=== PATIENT | male | born 1935 | race Caucasian/White ===

== ENCOUNTER → 2016-12-06 | Outpatient (CLI) | payer OTHER ==
[2016-04-26 15:02] VITALS: BP 122/60
[2016-12-06 11:13] LABS: CREATININE 1.38 mg/dL (0.70-1.30)
--- NOTE | 2016-12-07 09:27 | CT ---
CT CHEST WITH IV CONTRAST HISTORY: Dyspnea Comparison: Chest x-ray 08/02/2015 Technique: Multiple axial images of the chest were obtained from the thoracic inlet to the upper abd omen after the administration of IV contrast.Dose reduction techniques including Automated Exposure Control (AEC) and adjustment of mA and kV were utlized. Findings: The heart is normal in size. No pericardial effusion. Asymmetric elevation of the right hemidiaphrag m which is unchanged from 2015 chest x-ray. No suspicious mediastinal or axillary lymph nodes. Altho ugh not optimized to detect pulmonary embolism, no large central pulmonary emboli are seen. No focal consolidations, pleural effusions or pneumothorax. Airways are patent. No suspicious pulmo nary nodules or masses. Limited images of the upper abdomen are unremarkable. No aggressive osseous lesions. IMPRESSION: 1. No etiology for patient's dyspnea is identified. 2. Asymmetric elevation of the right hemidiaphragm. This is likely chronic in this patient. Reported By:
== END ==
LOC: RAD 10:37
PROVIDERS: ATTEND Internal Medicine
DX: R06.09 Other forms of dyspnea (principal)
CPT/HCPCS: 36415; 71260; 82565; 84520

== ENCOUNTER 2016-12-13 09:52 | Observation (INO) | payer OTHER ==
[2016-12-13] MEDS: PROTONIX INJ 40 MG VIAL IVP SCH (11:01)
[2016-12-13] MEDS: NS 1000 ML 1,000 ML IV SCH (11:02)
[2016-12-13 11:12] LABS: BASOPHILS % (AUTO) 0.4 % (0.2-1.0); EOSINOPHILS # (AUTO) 0.2 x10^3/uL (0.0-0.2); EOSINOPHILS % (AUTO) 3.5 % (0.9-2.9); HEMATOCRIT 38.3 % (42.0-54.0); HEMOGLOBIN 12.9 g/dL (13.5-18.0); LYMPHOCYTES % (AUTO) 19.4 % (21.0-51.0); MEAN CORPUSCULAR HEMOGLOBIN 27.8 pg (27.0-34.0); MEAN CORPUSCULAR HGB CONC 33.6 g/dL (33.0-35.0); MEAN CORPUSCULAR VOLUME 82.7 fL (80.0-100.0); MEAN PLATELET VOLUME 8.1 fL (7.4-11.0); MONOCYTES # (AUTO) 0.4 x10^3/uL (0.3-0.8); MONOCYTES % (AUTO) 6.9 % (0.0-13.0); NEUTROPHILS # (AUTO) 3.8 x10^3/uL (2.2-4.8); NEUTROPHILS % (AUTO) 69.8 % (42.0-75.0); PLATELET COUNT 210 X10^3/uL (150.0-450.0); RED BLOOD COUNT 4.63 X10^6/uL (4.7-6.0); WHITE BLOOD COUNT 5.4 X10^3/uL (3.6-10.0)
[2016-12-13 11:27] LABS: ALANINE AMINOTRANSFERASE 30 Units/L (12-78); ALBUMIN 3.7 g/dL (3.4-5.0); ALKALINE PHOSPHATASE 65 Units/L (46-116); ASPARTATE AMINO TRANSFERASE 19 Units/L (15-37); BLOOD UREA NITROGEN 24 mg/dL (7-18); CALCIUM 8.7 mg/dL (8.5-10.1); CARBON DIOXIDE 29.9 mmol/L (21-32); CHLORIDE 108 mmol/L (98-107); COR NA(FOR HYPERGLY) 142 mmol/L (136-145); CREATININE 1.35 mg/dL (0.70-1.30); GLUCOSE 111 mg/dL (65-99); MAGNESIUM 2.1 mg/dL (1.7-2.9); SODIUM 142 mmol/L (136-145); TOTAL PROTEIN 6.6 g/dL (6.4-8.2); eGFR BLACK RACES > 60 (>60); eGFR NON BLACK RACES 54 (>60)
[2016-12-13 11:40] LABS: CREATINE KINASE 86 Units/L (39-308); TROPONIN I < 0.02 ng/mL (0-1.5)
--- NOTE | 2016-12-13 11:55 | RAD ---
HISTORY: Chest pain Study: Chest one view Comparison: CT chest December 06, 2016 Findings: The heart is within normal limits in size. The umer are normal. Lungs are free of acute alveolar inf iltrates. No pleural effusions are identified. The right hemidiaphragm is chronically elevated. IMPRESSION: Lungs clear Chronically elevated right hemidiaphragm Reported By:
[2016-12-13 12:08] VITALS: BMI 28.3
[2016-12-13 12:32] LABS: CKMB % 1.2 % (<4); CREATINE KINASE MB < 1.0 ng/mL (0-4.0)
--- NOTE | 2016-12-13 13:04 | CT ---
HISTORY: Chronic dizziness, headache, facial numbness Study: CT brain without contrast Comparison: March 25, 2016 Technique: Multiple axial images of the brain were obtained from the skull base to the vertex witho ut administration of IV contrast. AEC was utilized. Findings: No acute intraparenchymal hemorrhage or mass can be identified. No extra-axial fluid collections ar e seen. No alteration in the attenuation of the brain parenchyma can be identified to suggest acute or subacute ischemic change. The ventricular system is symmetric and nondilated. There is chronic periventricular white matter disease observed and age-appropriate generalized atrophy. Extracrania l structures are grossly unremarkable. IMPRESSION: 1. No acute intracranial process can be identified. 2. Chronic periventricular white matter disease likely on the basis of small vessel ischemic change . 3. Age-appropriate atrophic changes are seen. Reported By:
--- NOTE | 2016-12-13 13:58 | DR.H&P ---
H&P - History & Physical for Day of: H&P Date: 12/13/16 - Chief Complaint Chief Complaint: DIZZINESS, NUMBNESS TO FACE, CP - Allergies Allergies/Adverse Reactions: Allergies Allergy/AdvReac Type Severity Reaction Status Date / Time Brompheniramine Allergy Verified 11/19/13 10:49 [From [employer]et[facility]] Phenylpropanolamine Allergy Verified 11/19/13 10:49 [From [employer]et[employer]] - History of Present Illness History of Present Illness: 81 [place] DIRECT ADMIT FROM DR MEADE OFFICE WITH CO NEW ONSET OF DIZZINESS AND FACIAL NUMBNESS. 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 PT STATES HE ATE THIS AM AND TOOK MEDICATIONS FELT FINE EARLIER TODAy. UPON ARRIVAL TO OFFICE WITH CO MILD CENTRAL CP, DENIES N/V, SOB, WEAKNESS. PT AMBULATED WITHOUT DIFFICLTY. PT BP WAS LOWER THAN BASELINE IN OFFICE 100/60,. PLAN TO ADMIT FOR CT HEAD, LABS SERIAL EKGS AND CARDIAC ENZYMES - Past Medical History Past Medical History: Arthritis, CVA, Dyslipidemia, Hypertension Additional Medical History: Diastolic Heart Failure, Hx Diverticulosis, BPH, Obstructive Sleep Apnea, Skin Cancer Basal Cell Carcinoma, Cataracts - Past Surgical History Surgical History: Ortho Surgery, Tonsillectomy, Other Additional Surgical History: Hernia Repair 2011, Nose surgery, Right arm surgery , Cataract Surgery - Family History Family Medical History: Cancer, [place], Hypertension - Social History Does patient currently use any type of tobacco product: No Have you used tobacco products in the last 12 months: No Type of Tobacco Use: None Does any household member use tobacco: No Alcohol Use: Rarely Drug Use: None - Review of Systems Constitutional: No Symptoms Reported Eyes: No Symptoms Reported ENT: No Symptoms Reported Respiratory: No Symptoms Reported Cardiovascular: Chest Pain Gastrointestinal: No Symptoms Reported Genitourinary: No Symptoms Reported Musculoskeletal: No Symptoms Reported Skin: No Symptoms Reported Neurological: Other (DIZZINESS) - Physical Exam Vital Signs: Temperature 97.8 F Pulse Rate [Right Brachial] 59 Respiratory Rate 12 Blood Pressure [Left Arm] 133/72 Blood Pressure [Right Arm] 102/57 Blood Pressure 122/60 O2 Sat by Pulse Oximetry 98 Oriented: Normal Eyes: Normal Ear: Normal Nose: Normal Throat: Normal Respiratory: RLL Diminished Cardiovascular: Normal. negative: Edema : Normal Auscultation: Bowel Sounds: Normal Palpation: Normal Tenderness: Normal Skin: Normal Musculoskeletal: Normal Mood Description: Calm Speech Pattern: Clear, Appropriate - Assessment/Plan (1) Dizziness Status: Acute Plan: ADMIT, CT HEAD STAT, CARDIAC MONITORING. ADMISSION CBC CMP UA. CXR, EKG. R/O AMI, CVA (2) Facial numbness Status: Acute Plan: DIFFUSE, BP AND LIPID CONTROL. CONTINUE PLAVIX, R/O CVA (3) Chest pain Qualifiers: Chest pain type: C Ischemic chest pain type: I Status: Acute Plan: ADMIT, SERIAL EKG'S CE. CXR ON ADMISSION, BP AND LIPID CONTROL. CONTINUE PLAVIX (4) Hypertension Qualifiers: Hypertension type: H Status: Acute (5) Essential hypertension Status: Chronic (6) History of CVA (cerebrovascular accident) Status: Chronic
[2016-12-13 15:39] LABS: BILIRUBIN,URINE NEGATIVE (NEGATIVE); BLOOD/HEMOGLOBIN,URINE NEGATIVE (NEGATIVE); GLUCOSE, URINE NEGATIVE (NEGATIVE); KETONES,URINE NEGATIVE (NEGATIVE); LEUKOCYTE ESTERASE ,URINE NEGATIVE (NEGATIVE); NITRITES,URINE NEGATIVE (NEGATIVE); PROTEIN,URINE NEGATIVE (NEGATIVE); UROBILINOGEN,URINE NORMAL (NORMAL)
[2016-12-13 15:49] LABS: APPEARANCE,URINE HAZY (CLEAR); BACTERIA,URINE NEGATIVE /HPF (NEGATIVE); COLOR,URINE YELLOW (YELLOW); RBC,URINE 0-2 /HPF (NEGATIVE); SQUAMOUS EPITHELIAL CELL,UR NEGATIVE /HPF (NEGATIVE)
[2016-12-13 16:46] LABS: CKMB % 1.2 % (<4); CREATINE KINASE 82 Units/L (39-308); CREATINE KINASE MB < 1.0 ng/mL (0-4.0); TROPONIN I < 0.02 ng/mL (0-1.5)
[2016-12-13] MEDS: COZAAR PO SCH (20:18)
[2016-12-13] MEDS ORDERED: [UNRECOGNIZED DRUG - OTHER] PO SCH (21:00)
[2016-12-13] MEDS ORDERED: ZyrTEC TAB 10 MG PO SCH (21:00)
[2016-12-13] MEDS ORDERED: ZETIA TAB 10 MG PO SCH (21:00)
[2016-12-13] MEDS ORDERED: ZOCOR TAB 40 MG PO SCH (21:00)
[2016-12-13] MEDS ORDERED: ZANAFLEX PO SCH (21:00)
[2016-12-13] MEDS ORDERED: ECOTRIN TAB 325 MG PO SCH (21:00)
[2016-12-13 23:29] LABS: CKMB % 1.4 % (<4); CREATINE KINASE 73 Units/L (39-308); CREATINE KINASE MB < 1.0 ng/mL (0-4.0); TROPONIN I < 0.02 ng/mL (0-1.5)
[2016-12-14 06:49] LABS: CHOL/HDL RATIO 4.5 (0.0-5.0)
[2016-12-14] MEDS ORDERED: HYDROCHLOROTHIAZIDE 25 MG TAB PO SCH (09:00)
[2016-12-14] MEDS ORDERED: PLAVIX PO SCH (09:00)
[2016-12-14] MEDS ORDERED: SYNTHROID 50 mcg TAB PO SCH (09:00)
[2016-12-14 09:05] LABS: CREATININE 1.28 mg/dL (0.70-1.30)
[2016-12-14] MEDS ORDERED: NS 100 ML IV 100 ML IV ONE (11:21)
[2016-12-14] MEDS: PROTONIX INJ 40 MG VIAL IVP SCH (12:39)
[2016-12-14] MEDS: COZAAR PO SCH (12:39)
[2016-12-14] MEDS: NS 1000 ML 1,000 ML IV SCH ×2 (12:40)
--- NOTE | 2016-12-14 14:06 | MRI ---
MRI OF THE BRAIN WITHOUT IV CONTRAST CLINICAL INDICATION: Headache. History of stroke. TECHNIQUE: Pre-contrast T1-w, T2, and diffusion-w sequences of the brain with ADC maps. COMPARISON: CT of the head 12/13/2016 FINDINGS: Diffuse patchy and confluent periventricular and subcortical T2/FLAIR signal with associated volume loss. There is no mass or mass-effect, or abnormal extra-axial fluid collection. Diffusion imaging shows no hyperacute, acute, or early subacute infarction. The ventricles are normal in size, shape a nd position. There are normal signal voids in the larger intracranial vessels. The paranasal sinuses and mastoid air cells are predominantly clear. The marrow signal pattern is within normal limits. IMPRESSION: 1. No acute intracranial abnormality. Reported By:
[2016-12-14 15:34] VITALS: BP 148/78
--- NOTE | 2016-12-14 15:36 | CT ---
CT ANGIOGRAM OF THE NECK WITHOUT AND WITH IV CONTRAST CLINICAL INDICATION: Hyperlipidemia with dizziness TECHNIQUE: Images were obtained through the neck per standard CTA protocol. Multiplanar reformatted, MIP, and volume rendered images were generated from the CT dataset.3D reconstructions were performe d. Dose reduction techniques including Automated Exposure Control (AEC) and adjustment of mA and kV were utlized. COMPARISON: None. FINDINGS: The imaged aortic arch is normal. The origins of the brachiocephalic, bilateral common carotid, linda ateral subclavian, and bilateral vertebral arteries demonstrate no significant stenosis.The bilatera l internal and external carotid arteries are patent. There is no grossly significant ICA stenosis.Th e cervical vertebral arteries are normal.There is no evidence of arterial dissection, significant st enosis, occlusion, extravasation of contrast material, arteriovenous fistula, or pseudoaneurysm.The visualized soft tissues of the neck appear normal. Moderate multilevel degenerative disc disease. IMPRESSION: 1. No hemodynamically significant stenosis of the carotid arteries Reported By:
== END 2016-12-14 14:45 | disposition home or self-care (01) ==
LOC: ICU 09:52
PROVIDERS: ADMIT Internal Medicine; ATTEND Internal Medicine
DX: R07.89 Other chest pain (principal); R42 Dizziness and giddiness; R20.0 Anesthesia of skin; E78.2 Mixed hyperlipidemia; I10 Essential (primary) hypertension; M13.89 Other specified arthritis, multiple sites; D64.89 Other specified anemias; R94.4 Abnormal results of kidney function studies; R94.31 Abnormal electrocardiogram [ECG] [EKG]; Z86.73 Personal history of transient ischemic attack (TIA), and cerebral infarction without residual deficits; Z79.01 Long term (current) use of anticoagulants
CPT/HCPCS: 36415; 70450; 70498; 70551; 71010; 80053; 80061; 81001; 82550; 82553; 82565; 83735; 84484; 84520; 85025; 85610; 85730; 93005; 93010; A4222; C9113; G8978; G8979; G0378

== ENCOUNTER → 2017-08-31 | Outpatient (CLI) | payer OTHER ==
--- NOTE | 2017-08-31 16:40 | RAD ---
History: Acute bronchitis, cough, shortness of breath Study: Chest PA/lateral Findings: PA and left lateral projections of the chest are compared to the previous study of 12/14/19 17. Heart and mediastinal structures are satisfactory in appearance. Chronic elevation the right megha diaphragm is again noted. Lungs and pleural spaces are clear. Osseous structures appear intact. Impression: No acute intra thoracic disease is identified. Reported By:
== END ==
LOC: RAD 16:20
PROVIDERS: ATTEND Internal Medicine
DX: J20.9 Acute bronchitis, unspecified (principal)
CPT/HCPCS: 71046

== ENCOUNTER → 2017-10-12 | Outpatient (CLI) | payer OTHER ==
--- NOTE | 2017-10-13 08:22 | RAD ---
HISTORY: Left hip pain Study: Left hip AP, frog-leg, AP pelvis Comparison: None Findings: The pelvic bones and SI joints are intact. The patient is incidentally noted to be status post right hip arthroplasty in good position. There is severe degenerative joint space narrowing in the left hip with subchondral sclerosis present. No joint erosion is identified. No fracture, lytic, or blastic l esion is identified. IMPRESSION: Relatively severe degenerative joint space narrowing left hip Reported By:
--- NOTE | 2017-10-13 08:53 | RAD ---
HISTORY: Back and left hip pain Study: Five views lumbar spine Comparison: MRI 03/04/2016 Findings: Normal alignment of the lumbar spine is maintained. Vertebral body heights are preserved. There is multilevel spondylosis and facet arthropathy of the lumbar spine with degenerative disc space narrowi ng most prominent at L4-5 and L5-S1.No evidence for acute fracture or subluxation. There is partially visualized right hip prosthesis. Vascular calcifications are noted. IMPRESSION: 1. Discogenic degenerative changes and facet arthropathy most prominent at L4-5 and L5-S1. Reported By:
== END | disposition home or self-care (01) | DRG 552 ==
LOC: RAD 15:19
PROVIDERS: ATTEND Specialist
DX: M54.89 Other dorsalgia (principal); M47.896 Other spondylosis, lumbar region; M47.897 Other spondylosis, lumbosacral region
CPT/HCPCS: 72110; 73501

== ENCOUNTER 2021-10-06 10:15 | Observation (INO) ==
[2021-10-06 10:22] VITALS: BMI 28.6
--- NOTE | 2021-10-06 10:37 | DR.WEAKNES ---
HPI Time Seen Time Seen by Provider: 10/06/21 10:28 Primary Care Physician Primary Care Physician: DANIELLE UGARTE HPI Comment HPI Comment: PATIENT IS 86YR OLD MALE IN ER WITH DIFFICULTY IN SPEECH SINCE 09:00AM TODAY. HE WAS FINDING IT DIFFICULT TO COME UP WITH RIGHT WORD. IT IS IMPROVING. HISTORY HTN AND HAVE HAD PREVIOUS CVA. DENIES HEADACHE, BLURRED VISION OR WEANESS. Complaints Chief Complaint Doctors Comments: PATIENT COULD NOT COME OUT WITH THE RIGHT WORDS TODAY SINCE 09:00AM. IMPROVING. Chief Complaint:: PT'S STATES SHE THINKS PT MAY HAVE HAD A MINI STOKE THIS AM @ 0900. PT STATES HE COULDN'T COME UP WITH THE RIGHT WORDS THIS AM. UPON ARRIVAL PT IS A&O X4, PT ABLE TO SPEAK IN COMPLETE SENTENCES @ THIS TIME. NO NEURO DEFICITS NOTED @ THIS TIME. Reviewed Nurses Notes Reviewed: Yes Source History Provided: Patient Mode of Arrival Mode of Arrival: Ambulatory Timing Onset of Chief Complaint: 10/06/21 Since onset, symptoms are:: Improved Symptom Onset: Known Onset of Symptoms Start Date: 10/06/21 Onset of Symptoms Start Time: 09:00 Duration Duration: Since Onset Duration: Hours Context Onset: Spontaneous Symptoms: Difficulty talking History of: CVA Stroke Symptoms: None (SPEECH DIFFICULTY.) Location Weakness Location: Normal Associated Signs and Symptoms Associated Signs and Symptoms: None Other History Other History: HTN, PREVIOUS CVA. PMH PMH Past Medical History: Yes Past Medical History: Arthritis, CVA, Dyslipidemia and Hypertension Past Surgical History: Yes Surgical History: Ortho Surgery, Tonsillectomy and Other Family History History of Family Medical Conditions: Yes Family Medical History: Cancer, [place] and Hypertension Social History Do you use any recreational Drugs:: No Travel Risk Coronavirus risk:travel/contact w/high risk person: No Has patient experienced Coronavirus symptoms: No Infectious screening Have you traveled outside the country in the last 6 months?: No Isolation: Standard ROS Review of Systems Constitutional: No Symptoms Reported and See HPI; negative Fever, Weakness and Fatigue Eyes: No Symptoms Reported and See HPI; negative Blurred Vision and Diplopia ENTM: No Symptoms Reported and See HPI; negative Nose Discharge and Nose Congestion Respiratoy: No Symptoms Reported and See HPI; negative Moist Cough, Short of Breath and Wheezing Cardiovascular: No Symptoms Reported and See HPI; negative Chest Pain Gastrointestinal/Abdominal: No Symptoms Reported and See HPI; negative Abdominal Pain, Diarrhea, Nausea and Vomiting Genitourinary: No Symptoms Reported and See HPI; negative Dysuria, Frequency and Hematuria Neurological: No Symptoms Reported, See HPI and Speech Problem (PROBLEM WITH WORDS COMIMG OUT.); negative Headache, Weakness and Dizziness Musculoskeletal: No Symptoms Reported and See HPI; negative Back Pain and Muscle Pain Integumentary: No Symptoms Reported and See HPI; negative Change in Color, Rash and Juandice Hematologic/Lymphatic: No Symptoms Reported and See HPI; negative Easy Bruising Endocrine: No Symptoms Reported and See HPI; negative Increased Thirst and Increased Urine Psychiatric: No Symptoms Reported and See HPI All Other Systems: Reviewed and Negative PE Vital Signs Vitals: Temperature 98.8 F Pulse Rate 61 Respiratory Rate 16 Blood Pressure [Left Arm] 133/72 Blood Pressure [Right Arm] 148/78 Blood Pressure 148/68 O2 Sat by Pulse Oximetry 95 General Limitations: No Limitations General Appearance: Alert and In No Apparent Distress Head Head Exam: Normal Inspection, Atraumatic and Normocephalic Head Exam Physical: Other (NONE NOTED IN ER.) Eyes Eye exam: Normal Appearance Eyelids: Normal Inspection: Bilateral Pupils: Regular, Round: Bilateral and Reactive: Bilateral Sclera/Conjunctival: Normal Inspection: Bilateral ENT ENT Exam: Normal Exam, Normal Oropharynx, Normal External Ear Exam and TM's Normal Bilaterally Mouth Exam: Normal Inspection; negative Lip Swelling and Tongue Swelling Throat Exam: Normal Inspection; negative Tonsillar Erythema, Tonsillomegaly and Tonsillar Exudate Neck Neck Exam: Normal Inspection and Trachea Midline; negative Tenderness Chest Chest Inspection: Normal Inspection and Symmetric Chest Wall Rise; negative Tenderness Respiratory Respiratory Exam: Normal Lung Sounds Bilat; negative Accessory Muscle Use, Chest Wall Tenderness and Respiratory Distress Respiratory Exam: Bilateral: Rhonchi and Lower: Rhonchi Cardiovascular Cardiovascular Exam: Regular Rate, Normal Rhythm and Normal Heart Sounds; nega tive Systolic Murmur and Diastolic Murmur Abdominal Exam Abdominal Exam: Normal Inspection, Normal Bowel Sounds and Soft; negative Tenderness Extremities Extremities Exam: Normal Inspection and Normal Capillary Refill Back Back Exam: Normal Inspection; negative (R) CVA Tenderness and (L) CVA Tenderness Neurologic Neurological Exam: Alert, Oriented X3, CN II-XII Intact and Other (SPEECH FLUID AND CLEAR. AND PATIENT SAID IS NOT NORMAL BUT MUCH IMPROVED.); negative Motor Sensory Deficit Patient Oriented To: Person, Place and Time Speech: Fluid Speech Cranial Nerve Exam: EOM Function (II, III, IV, ): Normal, Facial Sensation (V): Normal, Facial Palsy (VII): Normal, Gag reflex (XI): Normal and Tongue Deviation: Normal Motor Strength - LUE: 5/5 Motor Strength - RUE: 5/5 Motor Strength - LLE: 5/5 Motor Strength - RLE: 5/5 Upper Motor Neuron Exam: Babinski Sign: Normal Psychiatric Psychiatric Exam: Normal Affect and Normal Mood Skin Skin Exam: Warm, Dry, Intact and Normal Color MDM Additional Information Obtained Additional Information Obtained From: Old Records Differential Diagnosis Differential Diagnosis: CVA, Hypoglycemia, Mass Lesion and TIA Differential Diagnosis Comment: UTI, PNEUMONIA, [place]. COURSE Treatment Treatment: SEE ORDERS DONE WHILE PATIENT IN ER. PATIENT TRANSPORTED TO [facility] IN [place] FOR BRAIN CT. NO ACUTE FINDINGS AT THIS TIME. REPORT DISCUSSED WITH PATIENT AND HIS . LABS AND EKG DISCUSSED WELL. PATIENT WILL BE ADMITTED TO HOSPITAL FOR FURTHER MANAGEMENT. Consultation Consultation Comments: DISCUSSED PATIENT WITH DR. LEIVA WHILE PATIENT WAS IN ER. HE WILL ADMIT PATIENT Education/Counseling Education/Counseling: Patient Educated On: Diagnosis ROR Labs Reviewed Laboratory Results Reviewed?: Yes Result Diagrams: 10/07/21 04:20 10/07/21 04:20 Laboratory: WBC 6.8 X10^3/uL (3.6-10.0) 10/06/21 10:43 RBC 4.53 X10^6/uL (4.7-6.0) L 10/06/21 10:43 Hgb 12.7 g/dL (13.5-18.0) L 10/06/21 10:43 Hct 37.0 % (42.0-54.0) L 10/06/21 10:43 MCV 81.7 fL (80.0-100.0) 10/06/21 10:43 MCH 28.1 pg (27.0-34.0) 10/06/21 10:43 MCHC 34.4 g/dL (33.0-35.0) 10/06/21 10:43 RDW 14.4 % (11.6-16.5) 10/06/21 10:43 Plt Count 230 X10^3/uL (150.0-450.0) 10/06/21 10:43 MPV 7.7 fL (7.4-11.0) 10/06/21 10:43 Neut % (Auto) 70.5 % (42.0-75.0) 10/06/21 10:43 Lymph % (Auto) 19.2 % (21.0-51.0) L 10/06/21 10:43 [place] % (Auto) 7.0 % (0.0-13.0) 10/06/21 10:43 Eos % (Auto) 2.9 % (0.9-2.9) 10/06/21 10:43 Baso % (Auto) 0.4 % (0.2-1.0) 10/06/21 10:43 Neut # (Auto) 4.8 x10^3/uL (2.2-4.8) 10/06/21 10:43 Lymph # (Auto) 1.3 X10^3/uL (1.3-2.9) 10/06/21 10:43 [place] # (Auto) 0.5 x10^3/uL (0.3-0.8) 10/06/21 10:43 Eos # (Auto) 0.2 x10^3/uL (0.0-0.2) 10/06/21 10:43 Baso # (Auto) 0.0 X10^3/uL (0.0-0.1) 10/06/21 10:43 Absolute Nucleated RBC 0.1 /100WBC 10/06/21 10:43 PT 12.9 SECONDS (11.8-14.3) 10/06/21 10:43 INR Target Range - 10/06/21 10:43 INR 1.03 (0.8-1.3) 10/06/21 10:43 APTT 29.3 SECONDS (22.9-36.5) 10/06/21 10:43 PTT Comment - 10/06/21 10:43 Sodium 140 mmol/L (136-145) 10/06/21 10:43 Corrected Sodium TNP 10/06/21 10:43 Potassium 4.0 mmol/L (3.5-5.1) 10/06/21 10:43 Chloride 105 mmol/L (98-107) 10/06/21 10:43 Carbon Dioxide 30.1 mmol/L (21-32) 10/06/21 10:43 BUN 27 mg/dL (7-18) H 10/06/21 10:43 Creatinine 1.25 mg/dL (0.70-1.30) 10/06/21 10:43 Est GFR (MDRD) Af Amer > 60 (>60) 10/06/21 10:43 Est GFR (MDRD) Non-Af 58 (>60) L 10/06/21 10:43 Glucose 101 mg/dL (65-99) H 10/06/21 10:43 POC Glucose (mg/dL) 100 mg/dL (65-99) H 10/06/21 10:55 Calcium 8.1 mg/dL (8.5-10.1) L 10/06/21 10:43 Corrected Calcium TNP 10/06/21 10:43 Total Bilirubin 0.40 mg/dL (0.2-1.0) 10/06/21 10:43 AST 31 Units/L (15-37) 10/06/21 10:43 ALT 55 Units/L (12-78) 10/06/21 10:43 Alkaline Phosphatase 73 Units/L (46-116) 10/06/21 10:43 Total Protein 6.3 g/dL (6.4-8.2) L 10/06/21 10:43 Albumin 3.5 g/dL (3.4-5.0) 10/06/21 10:43 Globulin 2.8 g/dL (2.5-4.5) 10/06/21 10:43 Albumin/Globulin Ratio 1.3 Ratio (1.1-2.1) 10/06/21 10:43 Specimen Type Clean catch urine 10/06/21 13:15 Urine Color Yellow (YELLOW) 10/06/21 13:15 Urine Appearance Clear (CLEAR) 10/06/21 13:15 Urine pH 7.0 (5.0 - 8.0) 10/06/21 13:15 Ur Specific [place] 1.010 (1.000-1.030) 10/06/21 13:15 Urine Protein Negative (NEGATIVE) 10/06/21 13:15 Urine Glucose (UA) Negative (NEGATIVE) 10/06/21 13:15 Urine Ketones Negative (NEGATIVE) 10/06/21 13:15 Urine Occult Blood Negative (NEGATIVE) 10/06/21 13:15 Urine Nitrite Negative (NEGATIVE) 10/06/21 13:15 Urine Bilirubin Negative (NEGATIVE) 10/06/21 13:15 Urine Urobilinogen Normal (NORMAL) 10/06/21 13:15 Ur Leukocyte Esterase Negative (NEGATIVE) 10/06/21 13:15 SARS-CoV-2 (PCR) Negative (NEGATIVE) 10/06/21 13:15 Influenza Type A (PCR) Negative (NEGATIVE) 10/06/21 13:15 Influenza Type B (PCR) Negative (NEGATIVE) 10/06/21 13:15 RSV (PCR) Negative (NEGATIVE) 10/06/21 13:15 XRAY XRAY Interpreted by: Radiologist (REPORT NOTED.) and Self EKG Rate: 64 [place]: Normal Rhythm: NSR Block: None Hypertrophy: None ST: Nonsp Opioid Opioid Risk Tool Age (Brent box if 16-45): No History of Preadolescent Sexual Abuse: No Total: 0 Total Score Risk Category: Low Risk Copyright: [employer] EDWARDS predicting aberrant behaviors Diagnosis Discharge Problem: Brain TIA Hypertension Qualifiers: Hypertension type: primary hypertension Qualified Code(s): I10 - Essential (primary) hypertension Instructions Instructions: Confusion Transient Ischemic Attack, [id number] Bleeding Precautions When on Anticoagulant Therapy, Adult Form - Blood Pressure Record Sheet Dizziness, [id number] Managing Your Hypertension Forms: Excuse From Work or School Precautions for COVID19 [facility] Social Distancing
[2021-10-06 10:52] LABS: BASOPHILS % (AUTO) 0.4 % (0.2-1.0); EOSINOPHILS # (AUTO) 0.2 x10^3/uL (0.0-0.2); EOSINOPHILS % (AUTO) 2.9 % (0.9-2.9); HEMOGLOBIN 12.7 g/dL (13.5-18.0); LYMPHOCYTES # (AUTO) 1.3 X10^3/uL (1.3-2.9); LYMPHOCYTES % (AUTO) 19.2 % (21.0-51.0); MEAN CORPUSCULAR HEMOGLOBIN 28.1 pg (27.0-34.0); MEAN CORPUSCULAR HGB CONC 34.4 g/dL (33.0-35.0); MEAN CORPUSCULAR VOLUME 81.7 fL (80.0-100.0); MEAN PLATELET VOLUME 7.7 fL (7.4-11.0); MONOCYTES # (AUTO) 0.5 x10^3/uL (0.3-0.8); NEUTROPHILS # (AUTO) 4.8 x10^3/uL (2.2-4.8); NEUTROPHILS % (AUTO) 70.5 % (42.0-75.0); RED BLOOD COUNT 4.53 X10^6/uL (4.7-6.0); RED CELL DISTRIBUTION WIDTH 14.4 % (11.6-16.5); WHITE BLOOD COUNT 6.8 X10^3/uL (3.6-10.0)
[2021-10-06 11:01] LABS: ALANINE AMINOTRANSFERASE 55 Units/L (12-78); ALBUMIN 3.5 g/dL (3.4-5.0); ALKALINE PHOSPHATASE 73 Units/L (46-116); ASPARTATE AMINO TRANSFERASE 31 Units/L (15-37); BLOOD UREA NITROGEN 27 mg/dL (7-18); CALCIUM 8.1 mg/dL (8.5-10.1); CARBON DIOXIDE 30.1 mmol/L (21-32); CHLORIDE 105 mmol/L (98-107); CREATININE 1.25 mg/dL (0.70-1.30); SODIUM 140 mmol/L (136-145); TOTAL PROTEIN 6.3 g/dL (6.4-8.2); eGFR NON BLACK RACES 58 (>60)
[2021-10-06] MEDS ORDERED: ROCEPHIN 1 GRAM IV PREMIX 1 G/50 ML IV.SOLN. IV ONE (12:52)
[2021-10-06 13:26] LABS: BILIRUBIN,URINE NEGATIVE (NEGATIVE); BLOOD/HEMOGLOBIN,URINE NEGATIVE (NEGATIVE); GLUCOSE, URINE NEGATIVE (NEGATIVE); KETONES,URINE NEGATIVE (NEGATIVE); LEUKOCYTE ESTERASE ,URINE NEGATIVE (NEGATIVE); NITRITES,URINE NEGATIVE (NEGATIVE); PROTEIN,URINE NEGATIVE (NEGATIVE); UROBILINOGEN,URINE NORMAL (NORMAL)
[2021-10-06 13:36] LABS: APPEARANCE,URINE CLEAR (CLEAR); COLOR,URINE YELLOW (YELLOW)
[2021-10-06] MEDS ORDERED: PLAVIX ONE (14:18)
[2021-10-06] MEDS ORDERED: ASPIRIN ONE (14:19)
[2021-10-06] MEDS: PLAVIX PO SCH (14:28)
[2021-10-06] MEDS ORDERED: ASPIRIN PO SCH (15:00)
[2021-10-06] MEDS ORDERED: PATIENT'S HOME MEDICATION (Cinnamon Bark [Cinnamon] 500 mg Capsule) PO SCH (16:38)
[2021-10-06] MEDS ORDERED: PATIENT'S HOME MEDICATION (Aspirin 81 mg Tablet) PO SCH (16:38)
[2021-10-06] MEDS ORDERED: ZyrTEC TAB 10 MG PO SCH (16:38)
[2021-10-06] MEDS: NS 1,000 ML IV 1,000 ML IV SCH (17:34)
[2021-10-06] MEDS ORDERED: MICRO K EXTEN CAP 10 MEQ PO SCH (21:00)
[2021-10-06] MEDS ORDERED: ZETIA TAB 10 MG PO SCH (21:00)
[2021-10-06] MEDS ORDERED: MELATONIN PO PRN (21:00)
[2021-10-06] MEDS ORDERED: SAW PALMETTO 450 MG PO SCH (21:00)
[2021-10-06] MEDS ORDERED: TURMERIC 400 MG PO SCH (21:00)
[2021-10-06] MEDS ORDERED: NIACIN 500 MG PO SCH (21:00)
[2021-10-06] MEDS ORDERED: APPLE CIDER VINEGAR PO SCH (21:00)
[2021-10-06] MEDS ORDERED: ARICEPT TAB 5 MG PO SCH (21:00)
[2021-10-06] MEDS ORDERED: ZOCOR TAB 40 MG PO SCH (21:00)
[2021-10-06] MEDS ORDERED: SINEquan PO SCH (21:00)
[2021-10-06] MEDS ORDERED: GLUCOSAMINE SULFATE 500 MG PO SCH (21:00)
[2021-10-06] MEDS: NAPROSYN PO SCH (21:13)
[2021-10-06] MEDS: COZAAR PO SCH (21:13)
[2021-10-06 23:47] LABS: CKMB % 1.9 % (<4); CREATINE KINASE 52 Units/L (39-308); CREATINE KINASE MB < 1.0 ng/mL (0-4.0)
[2021-10-07] MEDS: NS 1,000 ML IV 1,000 ML IV SCH (05:10)
[2021-10-07 05:32] LABS: BASOPHILS % (AUTO) 0.4 % (0.2-1.0); EOSINOPHILS # (AUTO) 0.1 x10^3/uL (0.0-0.2); EOSINOPHILS % (AUTO) 2.3 % (0.9-2.9); HEMATOCRIT 35.1 % (42.0-54.0); HEMOGLOBIN 12.2 g/dL (13.5-18.0); LYMPHOCYTES # (AUTO) 1.7 X10^3/uL (1.3-2.9); LYMPHOCYTES % (AUTO) 25.7 % (21.0-51.0); MEAN CORPUSCULAR HEMOGLOBIN 28.1 pg (27.0-34.0); MEAN CORPUSCULAR HGB CONC 34.9 g/dL (33.0-35.0); MEAN CORPUSCULAR VOLUME 80.5 fL (80.0-100.0); MEAN PLATELET VOLUME 8.1 fL (7.4-11.0); MONOCYTES # (AUTO) 0.5 x10^3/uL (0.3-0.8); NEUTROPHILS # (AUTO) 4.1 x10^3/uL (2.2-4.8); NEUTROPHILS % (AUTO) 63.6 % (42.0-75.0); RED BLOOD COUNT 4.36 X10^6/uL (4.7-6.0); RED CELL DISTRIBUTION WIDTH 14.4 % (11.6-16.5); WHITE BLOOD COUNT 6.5 X10^3/uL (3.6-10.0)
[2021-10-07 05:57] LABS: ALANINE AMINOTRANSFERASE 47 Units/L (12-78); ALBUMIN 3.3 g/dL (3.4-5.0); ALKALINE PHOSPHATASE 67 Units/L (46-116); ASPARTATE AMINO TRANSFERASE 25 Units/L (15-37); BLOOD UREA NITROGEN 22 mg/dL (7-18); CALCIUM 7.9 mg/dL (8.5-10.1); CARBON DIOXIDE 29.2 mmol/L (21-32); CHLORIDE 107 mmol/L (98-107); CKMB % 2.1 % (<4); COR CA(FOR HYPOALB) 8.5 mg/dL (8.5-10.1); CREATINE KINASE 47 Units/L (39-308); CREATINE KINASE MB < 1.0 ng/mL (0-4.0); CREATININE 1.02 mg/dL (0.70-1.30); SODIUM 144 mmol/L (136-145); TOTAL PROTEIN 5.8 g/dL (6.4-8.2); eGFR NON BLACK RACES > 60 (>60)
[2021-10-07] MEDS ORDERED: MICRO K EXTEN CAP 10 MEQ PO PRN (06:46)
[2021-10-07] MEDS ORDERED: KLOR-CON PO PRN (06:46)
[2021-10-07] MEDS ORDERED: K-DUR TAB 20 MEQ PO PRN (06:46)
[2021-10-07] MEDS ORDERED: MAGNESIUM SULFATE 1 GRAM/100 mL PREMIX 1 G/100 ML BAG IV PRN (06:46)
[2021-10-07] MEDS ORDERED: POTASSIUM CHL 60 MEQ/NS 0.45% 500 ML IV PRN (06:46)
[2021-10-07] MEDS ORDERED: POTASSIUM CHLORIDE LIQ 20 MEQ UDC PO PRN (06:46)
[2021-10-07] MEDS ORDERED: K-RIDER 10 MEQ/NS 100 ML 10 MEQ/100 ML BAG IV PRN (06:46)
[2021-10-07] MEDS ORDERED: POTASSIUM CHL 40 MEQ/NS 0.45% 500 ML IV PRN (06:46)
[2021-10-07] MEDS ORDERED: SYNTHROID 75 mcg TAB PO SCH (09:00)
[2021-10-07] MEDS ORDERED: ASPIRIN EC 81 MG PO SCH ×2 (09:00)
[2021-10-07] MEDS ORDERED: TAB-A-VITE PO SCH (09:00)
[2021-10-07] MEDS ORDERED: HYDROCHLOROTHIAZIDE 25 MG TAB PO SCH (09:00)
[2021-10-07] MEDS ORDERED: PLAVIX PO SCH ×2 (09:00)
--- NOTE | 2021-10-07 09:29 | MRI ---
HISTORYSPEECH DISTURBANCE, TROUBLE COMMUNICATING WORDS SINCE YESTERDAYSTUDYBRAIN W/O CONCOMPARISONCT head 01/05/2021.TECHNIQUEMultiplanar multi-sequence MRI of the brain was obtained utilizing standard departmental protocol. Sagittal and axial T1 weighted images were obtained. Axial T2 and flair weighted images were performed as well. Axial diffusion weighted and ADC trace mapping was performed.FINDINGSMild motion artifact on the FLAIR sequence and moderate motion artifact on the coronal T2 sequence limits evaluation.Diffusion imaging: [Normal, no acute infarct.]Susceptibility weighted imaging: [No abnormal susceptibility artifact.]Brain volume: [Appropriate for age.]Ventricles and basal cisterns: FLAIR bright signal in the basilar cisterns and 4th ventricle is nonspecific but often due to technical artifact. No abnormal signal in these locations on other pulse sequences. No hydrocephalus.Extra-axial spaces: [No extra-axial collection.]Cerebral parynchema: [No mass, hematoma, or mass effect.] Mild amount of T2 and Flair hyperintensities in the supratentorial subcortical and deep white matter. Chronic right basal ganglia lacunar infarct. Multiple perivascular spaces are present in the basal ganglia.Pituitary and other sagittal midline structures: [Normal.]Visualized orbits: [Normal.]Paranasal sinuses and mastoid air cells: [Clear.]Bones: [Intact.]Other: [None.]IMPRESSION[No abnormal restricted diffusion to suggest acute infarct. Mild chronic small vessel disease. Chronic right basal ganglia lacunar infarct.]Electronically signed by: Shamir Abernathy (Oct 07, 2021 09:27:57)
[2021-10-07] MEDS: PLAVIX PO SCH (10:00)
[2021-10-07] MEDS ORDERED: LOVENOX INJ 40 MG SYR SC SCH ×2 (10:00→11:00)
[2021-10-07] MEDS: COZAAR PO SCH (10:00)
[2021-10-07] MEDS: NAPROSYN PO SCH (10:18)
--- NOTE | 2021-10-07 12:48 | DR.H&P ---
H&P - History & Physical for Day of: H&P Date: 10/06/21 - Chief Complaint Chief Complaint: Confusion - History of Present Illness History of Present Illness: Patient is a 86 year old white male who is being admitted due to confusion. Patient has a history of CVA many years ago; was on ASA and plavix. Plavix has since been discontinued over the years. Patient had an episode of confusion this am at his daughters house. Patient and spouse deny any residual effects. PMH CVA, COPD, CAD, HTN, HLD. - Past Medical History Past Medical History: Hypertension, Dyslipidemia, CVA, Arthritis Additional Medical History: Diastolic Heart Failure, Hx Diverticulosis, BPH, Obstructive Sleep Apnea, Skin Cancer Basal Cell Carcinoma, Cataracts - Past Surgical History Surgical History: Joint Replacement, Ortho Surgery, Tonsillectomy Additional Surgical History: Hernia Repair 2011, Nose surgery, Right arm surgery, Cataract Surgery - Family History Family Medical History: Cancer, [place], Hypertension - Social History Does patient currently use any type of tobacco product: No Have you used tobacco products in the last 12 months: No Type of Tobacco Use: Cigarettes Does any household member use tobacco: No Alcohol Use: None Drug Use: None - Medications Home Medications: brompheniramine Allergy (Verified 10/06/21 10:35) phenylpropanolamine Allergy (Verified 10/06/21 10:35) CONTINUE taking the following medications alfuzosin 10 mg PO HS 10/06/21 [History] apple cider vinegar 500 mg PO BID 10/06/21 [History] aspirin 81 mg PO ONCE 10/06/21 [History] cetirizine 10 mg PO ONCE 10/06/21 [History] cinnamon bark [Cinnamon] 2,000 mg PO ONCE 10/06/21 [History] donepezil 5 mg PO HS 10/06/21 [History] doxepin 25 mg PO HS 10/06/21 [History] ezetimibe 10 mg PO HS 10/06/21 [History] glucosamine sulfate [Glucosamine] 500 mg PO BID 10/06/21 [History] hydrochlorothiazide 25 mg PO DAILY 10/06/21 [History] levothyroxine 75 mcg PO DAILY 10/06/21 [History] losartan 25 mg PO HS 10/06/21 [History] melatonin 10 mg PO HS PRN 10/06/21 [History] multivitamin,[id number]-edel-[id number] [Complete Multivitamin] 1 tab PO DAILY 10/06/21 [History] naproxen 250 mg PO BID 10/06/21 [History] niacin 500 mg PO BID 10/06/21 [History] potassium chloride 10 meq PO HS 10/06/21 [History] saw palmetto 450 mg PO BID 10/06/21 [History] simvastatin 40 mg PO HS 10/06/21 [History] turmeric 400 mg PO BID 10/06/21 [History] - Review of Systems Constitutional: See HPI Eyes: See HPI ENT: See HPI Respiratory: See HPI Cardiovascular: See HPI Gastrointestinal: See HPI Genitourinary: See HPI Musculoskeletal: See HPI Skin: See HPI Neurological: See HPI - Physical Exam Vital Signs: Temperature 98.3 F Pulse Rate [Left] 62 Pulse Rate 65 Respiratory Rate 18 Blood Pressure [Left Arm] 157/70 Blood Pressure [Right Arm] 137/64 Blood Pressure 161/72 O2 Sat by Pulse Oximetry 95 Oriented: Normal, Time, Person, Place Eyes: Normal Ear: Normal Nose: Normal Throat: Normal Respiratory: Clear Throughout Cardiovascular: Normal : Normal Auscultation: Bowel Sounds: Normal Palpation: Normal Tenderness: Normal Skin: Normal Musculoskeletal: Normal Psychiatric: Normal Mood Description: Calm Affect: Normal Speech Pattern: Clear, Appropriate - Assessment/Plan (1) Confusion Status: Acute Plan: MRI brain. Admit. LAbs and imaging as ordered. ASA and Plavix (2) Essential hypertension Status: Chronic (3) History of CVA (cerebrovascular accident) Status: Chronic (4) Hyperlipidemia Qualifiers: Hyperlipidemia type: Mixed hyperlipidemia Qualified Code(s): E78.2 - Mixed hyperlipidemia Status: Chronic - Allergies Allergies/Adverse Reactions: Allergies Allergy/AdvReac Type Severity Reaction Status Date / Time brompheniramine Allergy Verified 10/06/21 10:35 phenylpropanolamine Allergy Verified 10/06/21 10:35
[2021-10-07 14:22] VITALS: BP 169/80
--- NOTE | 2021-11-03 14:05 | PCM.DCPLAN ---
Discharge Plan - Discharge Plan Hospital Course: Admit date 10/06/21 Discharge date 10/07/21 DOS 10/07/21 Admit diagnosis(1) Confusion (2) Essential hypertension (3) History of CVA (cerebrovascular accident) (4) Hyperlipidemia Discharge diagnosis Same Hospital Course Patient is a 86 year old white male who is being admitted due to confusion. Patient has a history of CVA many years ago; was on ASA and plavix. Plavix has since been discontinued over the years. Patient had an episode of confusion this am at his daughters house. Patient and spouse deny any residual effects. Patient was alert and oriented after arriving to hospital. Spouse reports patient never gets confused therefore this transient confusion was different and abnormal therefore she brought him to hospital. MRI was negative for acute findings as well as all other radiology exams and labs. Patient was discharged home to follow up with PCP. Patient was discharged home on ASA and plavix (due to history of CVA). Greater than 35 minutes spent on discharge.to discomfort; Disposition: 01 HOME, SELF-CARE Condition: Stable Health Concerns: Post Hospitalization: new medications and changes needed to prevent readmission or further decline. Pt educated and given instructions on all concerns. Care Plan Goals: Problem: Alteration in Mental Status Goal: Patient will stay oriented to their cognitive ability Instructions: Follow provided instructions. Follow up with primary physician as directed. Contact primary care physician or report to the closest Emergency Room if condition worsens. Plan of Treatment: Continue with present treatment and follow up plan. Pt is to keep follow up appointment as instructed and take medications as ordered. Prescriptions: New aspirin [Aspirin Low Dose] 81 mg Tablet,Delayed Release (Dr/Ec) 81 mg PO DAILY Qty: 30 RF: 0 Transmission Status: Received by [facility] clopidogrel [Plavix] 75 mg Tablet 75 mg PO DAILY Qty: 30 RF: 0 Transmission Status: Received by [facility] Discontinued aspirin 81 mg Tablet 81 mg PO ONCE No Action alfuzosin 10 mg tablet extended release 24 hr 10 mg PO HS apple cider vinegar 500 mg Tablet 500 mg PO BID cetirizine 10 mg Tablet 10 mg PO ONCE cinnamon bark [Cinnamon] 500 mg Capsule 2,000 mg PO ONCE Complete Multivitamin Tablet 1 tab PO DAILY donepezil 5 mg tablet 5 mg PO HS doxepin 50 mg capsule 25 mg PO HS ezetimibe 10 mg tablet 10 mg PO HS glucosamine sulfate [Glucosamine] 500 mg Tablet 500 mg PO BID hydrochlorothiazide 25 mg tablet 25 mg PO DAILY levothyroxine 75 mcg tablet 75 mcg PO DAILY losartan 100 mg tablet 25 mg PO HS melatonin 10 mg Tablet 10 mg PO HS PRN naproxen 250 mg Tablet 250 mg PO BID niacin 500 mg Capsule 500 mg PO BID potassium chloride 10 mEq capsule, extended release 10 meq PO HS saw palmetto 450 mg Capsule 450 mg PO BID simvastatin 40 mg tablet 40 mg PO HS turmeric 400 mg Capsule 400 mg PO BID - Orders to Discharge Patient Discharge Orders: Discharge (Routine); Ordered 10/07/21 Ordered By: Valery Corona - Follow ups/Referrals Follow ups/Referrals: DANIELLE UGARTE [Primary Care Provider] - 10/14/21 2:00 pm
== END 2021-10-07 14:45 | disposition home or self-care (01) ==
LOC: MED/SURG 10:15 → ER 10:15 → MED/SURG 16:50
PROVIDERS: ADMIT Internal Medicine; ATTEND Internal Medicine
DX: R41.82 Altered mental status, unspecified; R94.31 Abnormal electrocardiogram [ECG] [EKG]; I10 Essential (primary) hypertension; G45.8 Other transient cerebral ischemic attacks and related syndromes; Z20.822 Contact with and (suspected) exposure to COVID-19; E78.2 Mixed hyperlipidemia; Z86.73 Personal history of transient ischemic attack (TIA), and cerebral infarction without residual deficits

== ENCOUNTER 2021-12-04 02:34 | Observation (INO) ==
[2021-12-04 02:46] VITALS: BMI 27.1
--- NOTE | 2021-12-04 03:13 | DR.SOBA ---
HPI Time Seen Time Seen by Provider: 12/04/21 02:42 HPI Comment HPI Comment: Returns to ER with persistent sob and cough x several weeks; initially in 12/03 with cp which resolved; no fever, chills, abd pain, n/v/d; currently on abx (?merropenam) via picc line for osteomyelitis per Dr Garcia and ID in [place]; daughter has copy of chest ct done in [place] a week or two ago which shows elevated diaphragm and "cannot r/o infectious process" PMH PMH Past Medical History: Arthritis, CVA, Dyslipidemia and Hypertension Past Surgical History: Yes Surgical History: Joint Replacement, Ortho Surgery and Tonsillectomy Family History Family Medical History: Cancer, [place] and Hypertension Social History Do you use any recreational Drugs:: No ROS Review of Systems Constitutional: No Symptoms Reported Eyes: No Symptoms Reported ENTM: No Symptoms Reported Cardiovascular: No Symptoms Reported Gastrointestinal/Abdominal: No Symptoms Reported Genitourinary: No Symptoms Reported Neurological: No Symptoms Reported Musculoskeletal: No Symptoms Reported Integumentary: No Symptoms Reported Hematologic/Lymphatic: No Symptoms Reported Endocrine: No Symptoms Reported Psychiatric: No Symptoms Reported PE Vital Signs Vitals: Temperature 98.2 F Pulse Rate 62 Respiratory Rate 18 Blood Pressure [Left Arm] 169/80 Blood Pressure 157/70 O2 Sat by Pulse Oximetry 98 General Limitations: No Limitations General Appearance: Alert and In No Apparent Distress Head Head Exam: Normal Inspection Eyes Eye exam: Normal Appearance ENT ENT Exam: Normal Exam Neck Neck Exam: Normal Inspection Chest Chest Inspection: Normal Inspection Respiratory Respiratory Exam: Normal Lung Sounds Bilat Respiratory Exam: Bilateral: Clear to Auscultation Cardiovascular Cardiovascular Exam: Regular Rate and Normal Rhythm Abdominal Exam Abdominal Exam: Normal Inspection, Normal Bowel Sounds and Soft Extremities Extremities Exam: Normal Inspection Back Back Exam: Normal Inspection Neurologic Neurological Exam: Alert and Oriented X3 Psychiatric Psychiatric Exam: Normal Affect and Normal Mood Skin Skin Exam: Warm, Dry, Intact and Normal Color COURSE Treatment Treatment: elevated diaphragm is chronic; on merropenam for osteomyelitis via picc line; will add zpak for atypical coverage Reevaluation 1st: Unchanged (resting quietly) ROR Labs Reviewed Laboratory Results Reviewed?: Yes Result Diagrams: 12/08/21 04:06 12/08/21 04:06 Laboratory: Sodium 136 mmol/L (136-145) 12/04/21 03:00 Corrected Sodium 136 mmol/L (136-145) 12/04/21 03:00 Potassium 2.9 mmol/L (3.5-5.1) L* 12/04/21 03:00 Chloride 102 mmol/L (98-107) 12/04/21 03:00 Carbon Dioxide 27.1 mmol/L (21-32) 12/04/21 03:00 BUN 16 mg/dL (7-18) 12/04/21 03:00 Creatinine 1.50 mg/dL (0.70-1.30) H 12/04/21 03:00 Est GFR (MDRD) Af Amer 57 (>60) L 12/04/21 03:00 Est GFR (MDRD) Non-Af 47 (>60) L 12/04/21 03:00 Glucose 112 mg/dL (65-99) H 12/04/21 03:00 Calcium 7.9 mg/dL (8.5-10.1) L 12/04/21 03:00 Corrected Calcium 9.1 mg/dL (8.5-10.1) 12/04/21 03:00 Total Bilirubin 0.40 mg/dL (0.2-1.0) 12/04/21 03:00 AST 19 Units/L (15-37) 12/04/21 03:00 ALT 24 Units/L (12-78) 12/04/21 03:00 Alkaline Phosphatase 108 Units/L (46-116) 12/04/21 03:00 Creatine Kinase 20 Units/L (39-308) L 12/04/21 03:00 CK-MB (CK-2) < 1.0 ng/mL (0-4.0) 12/04/21 03:00 CK/CKMB % Calc 5.0 % (<4) 12/04/21 03:00 Troponin I High Sens 18.1 ng/L (4.0-60.0) 12/04/21 03:00 Total Protein 6.1 g/dL (6.4-8.2) L 12/04/21 03:00 Albumin 2.5 g/dL (3.4-5.0) L 12/04/21 03:00 Globulin 3.6 g/dL (2.5-4.5) 12/04/21 03:00 Albumin/Globulin Ratio 0.7 Ratio (1.1-2.1) L 12/04/21 03:00 SARS CoV-2 RNA Rapid JESSICA Negative (NEGATIVE) 12/04/21 02:50 XRAY XRAY Interpreted by: Radiologist X-ray Results: CTA: 1. No pulmonary embolus. 2.Possible right lower lobe pneumonia. 3. Elevated right hemidiaphragm. Opioid Opioid Risk Tool Age (Brent box if 16-45): No History of Preadolescent Sexual Abuse: No Total: 0 Total Score Risk Category: Low Risk Copyright: [facility] predicting aberrant behaviors Diagnosis Discharge Problem: Elevated hemidiaphragm, Acute hypokalemia, Acute dyspnea RLL pneumonia Qualifiers: Pneumonia type: due to unspecified organism Qualified Code(s): J18.9 - Pneumonia, unspecified organism Hypertension Qualifiers: Hypertension type: primary hypertension Qualified Code(s): I10 - Essential (primary) hypertension Instructions Instructions: Fall Prevention in the Home, Adult, Lkes-nh-Epja Shortness of Breath, Adult, Gtjz-jm-Cbgi Hypokalemia Panic Attack, Hqfq-oo-Stmd Stroke Prevention, Bhyf-ks-Wbiq Hypertension, Adult, Kjuh-wk-Lxvj Supporting Someone With Anxiety Managing Anxiety, Adult Managing Your Hypertension Community-Acquired Pneumonia, Adult, Xfys-dg-Utyh Forms: Precautions for COVID19 [facility] Social Distancing
[2021-12-04 03:33] LABS: ALANINE AMINOTRANSFERASE 24 Units/L (12-78); ALBUMIN 2.5 g/dL (3.4-5.0); ALKALINE PHOSPHATASE 108 Units/L (46-116); ASPARTATE AMINO TRANSFERASE 19 Units/L (15-37); BLOOD UREA NITROGEN 16 mg/dL (7-18); CALCIUM 7.9 mg/dL (8.5-10.1); CARBON DIOXIDE 27.1 mmol/L (21-32); CHLORIDE 102 mmol/L (98-107); COR CA(FOR HYPOALB) 9.1 mg/dL (8.5-10.1); CREATINE KINASE 20 Units/L (39-308); CREATINE KINASE MB < 1.0 ng/mL (0-4.0); TOTAL PROTEIN 6.1 g/dL (6.4-8.2); eGFR NON BLACK RACES 47 (>60)
[2021-12-04 03:44] LABS: COR NA(FOR HYPERGLY) 136 mmol/L (136-145); SODIUM 136 mmol/L (136-145)
[2021-12-04] MEDS ORDERED: K-RIDER 10 MEQ/NS 100 ML 10 MEQ/100 ML BAG IV ONE ×2 (03:48→03:55)
[2021-12-04] MEDS ORDERED: MICRO K EXTEN CAP 10 MEQ PO ONE (03:55)
[2021-12-04] MEDS: MICRO K EXTEN CAP 10 MEQ PO SCH ×2 (04:00→09:27)
--- NOTE | 2021-12-04 04:40 | CT ---
PROCEDURE: CTA Chest .HISTORY: Dyspnea.TECHNIQUE: Axial images were performed through the chest with the administration of IV contrast with multiplanar reformations . 3D and MIPS reconstructions were performed and reviewed. Dose reduction techniques including Automated Exposure Control (AEC) and adjustment of mA and kV were utilized .COMPARISON: None .TECHNICAL QUALITY: Satisfactory .FINDINGS:Mild atherosclerosis aorta with no aneurysm. Aorta is unopacified with contrast.No evidence of pulmonary embolus.Mediastinum and hilar regions show no masses or lymphadenopathy.Normal size heart with no pericardial fluid.Elevated right hemidiaphragm. Atelectasis/consolidation right lower lobe with air bronchograms could be related to pneumonia. No other consolidation. No masses or pleural fluid.Visualized upper abdomen shows no significant abnormality.No acute bony abnormality.IMPRESSION:1. No pulmonary embolus.2. Possible right lower lobe pneumonia.3. Elevated right hemidiaphragm.Electronically signed by: Koffi Rivas (Dec 04, 2021 04:39:58)
[2021-12-04] MEDS ORDERED: ROCEPHIN 1 GRAM IV PREMIX 1 G/50 ML IV.SOLN. IV ONE (04:59)
[2021-12-04] MEDS ORDERED: NS 250 ML IV 250 ML IV ONE ×2 (05:00→06:06)
[2021-12-04] MEDS ORDERED: ZITHROMAX INJ 500 MG VIAL 500 MG in NS 250 ML IV 250 ML IV SCH (05:07)
[2021-12-04] MEDS ORDERED: ZITHROMAX INJ 500 MG VIAL IV ONE (06:05)
[2021-12-04] MEDS ORDERED: APRESOLINE INJ 20 MG VIAL IVP ONE (07:51)
[2021-12-04] MEDS ORDERED: APRESOLINE INJ 20 MG VIAL ONE (07:56)
[2021-12-04 09:17] LABS: ABG BASE EXCESS 2.9 mmol/L (-2.0-2.0); ABG HCO3 24.8 mmol/L (22-26)
[2021-12-04 09:18] LABS: ABG ALLEN TEST POS
[2021-12-04] MEDS: PULMICORT NEB TX 0.5 MG NEB SCH ×2 (09:26→21:40)
[2021-12-04] MEDS ORDERED: LEXAPRO ONE (09:37)
[2021-12-04] MEDS: PROTONIX INJ 40 MG VIAL IVP SCH (09:43)
[2021-12-04] MEDS: LOPRESSOR TAB 50 MG PO SCH ×2 (09:43→21:04)
[2021-12-04] MEDS: ELIQUIS PO SCH ×2 (09:43→21:03)
[2021-12-04] MEDS: NS + KCL 20 MEQ/L 1,000 ML IV SCH (09:43)
[2021-12-04] MEDS: LEXAPRO PO SCH (09:44)
[2021-12-04 09:52] LABS: BASOPHILS # (AUTO) 0.1 X10^3/uL (0.0-0.1); BASOPHILS % (AUTO) 0.7 % (0.2-1.0); EOSINOPHILS # (AUTO) 0.1 x10^3/uL (0.0-0.2); HEMATOCRIT 32.1 % (42.0-54.0); HEMOGLOBIN 11.2 g/dL (13.5-18.0); LYMPHOCYTES # (AUTO) 1.1 X10^3/uL (1.3-2.9); LYMPHOCYTES % (AUTO) 15.1 % (21.0-51.0); MEAN CORPUSCULAR HEMOGLOBIN 27.9 pg (27.0-34.0); MEAN CORPUSCULAR HGB CONC 34.9 g/dL (33.0-35.0); MEAN PLATELET VOLUME 7.8 fL (7.4-11.0); MONOCYTES # (AUTO) 0.6 x10^3/uL (0.3-0.8); MONOCYTES % (AUTO) 7.4 % (0.0-13.0); NEUTROPHILS # (AUTO) 5.8 x10^3/uL (2.2-4.8); NEUTROPHILS % (AUTO) 75.8 % (42.0-75.0); RED BLOOD COUNT 4.01 X10^6/uL (4.7-6.0); RED CELL DISTRIBUTION WIDTH 15.1 % (11.6-16.5); WHITE BLOOD COUNT 7.6 X10^3/uL (3.6-10.0)
[2021-12-04 10:11] LABS: ALANINE AMINOTRANSFERASE 29 Units/L (12-78); ALBUMIN 2.8 g/dL (3.4-5.0); ALKALINE PHOSPHATASE 122 Units/L (46-116); ASPARTATE AMINO TRANSFERASE 21 Units/L (15-37); BLOOD UREA NITROGEN 15 mg/dL (7-18); CALCIUM 8.2 mg/dL (8.5-10.1); CARBON DIOXIDE 25.2 mmol/L (21-32); CHLORIDE 103 mmol/L (98-107); CKMB % 4.4 % (<4); COR CA(FOR HYPOALB) 9.2 mg/dL (8.5-10.1); COR NA(FOR HYPERGLY) 138 mmol/L (136-145); CREATINE KINASE 23 Units/L (39-308); CREATINE KINASE MB < 1.0 ng/mL (0-4.0); CREATININE 1.52 mg/dL (0.70-1.30); SODIUM 138 mmol/L (136-145); TOTAL PROTEIN 6.7 g/dL (6.4-8.2); eGFR NON BLACK RACES 47 (>60)
[2021-12-04 10:26] LABS: BILIRUBIN,URINE NEGATIVE (NEGATIVE); BLOOD/HEMOGLOBIN,URINE 1+ (NEGATIVE); GLUCOSE, URINE NEGATIVE (NEGATIVE); KETONES,URINE NEGATIVE (NEGATIVE); LEUKOCYTE ESTERASE ,URINE NEGATIVE (NEGATIVE); NITRITES,URINE NEGATIVE (NEGATIVE); PROTEIN,URINE 1+ (NEGATIVE); UROBILINOGEN,URINE NORMAL (NORMAL)
[2021-12-04 10:37] LABS: APPEARANCE,URINE CLEAR (CLEAR); BACTERIA,URINE NEGATIVE /HPF (NEGATIVE); COLOR,URINE YELLOW (YELLOW); RBC,URINE 0-2 /HPF (0-3); SQUAMOUS EPITHELIAL CELL,UR RARE /HPF (NEGATIVE)
[2021-12-04] MEDS: MAXIPIME VIAL 1 GRAM 1 G in NS 50 ML IV 50 ML IV SCH ×2 (10:40→21:07)
[2021-12-04] MEDS: XOPENEX 1.25 MG/3 ML NEBULE NEB SCH ×2 (12:15→17:00)
--- NOTE | 2021-12-04 12:27 | DR.H&P ---
H&P - History & Physical for Day of: H&P Date: 12/04/21 - Chief Complaint Chief Complaint: SOB, CHEST PAIN, DUNN - History of Present Illness History of Present Illness: PT IS 86 WM ER ADMISSION AFTER PRESENTING WITH CO CHEST PAIN AND SOB. PT WAS IN THE ER LATER ON TUESDAY AFTERNOON WITH SAME SYMPTOMS. PT WAS RECENTLY DX WITH AFIB AND IS ON METOPROLOL AND ELIQUIS AND HAD BEEN COMPLIANT WITH WITH MEDICATION REGIMEN. 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 PT HAS PMH OF HTN, COPD, AND OA. PTS LAST HEART CATH WAS IN 2014 AND LAST KNOWN STRESS TEST WAS IN DECEMBER 2019. PT IS UNDER THE CARE OF [facility]. PT WAS HYPOLALEMIC AND HYPERTENSION ON ARRIVAL. PT ADMITTED FOR TREATMENT AND EVALUATION OF ACUTE ILLNESS. - Past Medical History Past Medical History: Hypertension, Dyslipidemia, CVA, Arthritis Additional Medical History: Diastolic Heart Failure, Hx Diverticulosis, BPH, Obstructive Sleep Apnea, Skin Cancer Basal Cell Carcinoma, Cataracts - Past Surgical History Surgical History: Joint Replacement, Other Additional Surgical History: Hernia Repair 2010, Nose surgery, Right arm surgery, Cataract Surgery - Family History Family Medical History: Coronary Artery Disease - Social History Does patient currently use any type of tobacco product: No Have you used tobacco products in the last 12 months: No Type of Tobacco Use: None Does any household member use tobacco: No Alcohol Use: None Drug Use: None - Medications Home Medications: brompheniramine Allergy (Verified 10/06/21 10:35) phenylpropanolamine Allergy (Verified 10/06/21 10:35) CONTINUE taking the following medications L.acidoph,saliva-B.bif-S.therm [Acidophilus Probiotic Blend] 1 cap PO DAILY 12/04/21 [History] cefepime [Maxipime] 1 g IV BID 12/04/21 [History] cetirizine 10 mg PO DAILY 12/04/21 [History] ferrous sulfate [FeroSul] 325 mg PO DAILY 12/04/21 [History] losartan 25 mg PO BID 12/04/21 [History] melatonin 10 mg PO HS 12/04/21 [History] - Review of Systems Constitutional: Weakness Eyes: No Symptoms Reported Respiratory: SOB with Excertion Cardiovascular: Chest Pain, Palpitations, Light Headedness Gastrointestinal: No Symptoms Reported Genitourinary: No Symptoms Reported Musculoskeletal: No Symptoms Reported Skin: Other (MILD LOCALIZED REDNESS TO BASE OF RIGHT GREAT TOE) Neurological: Weakness - Physical Exam Vital Signs: Temperature 98.2 F Pulse Rate 68 Respiratory Rate 17 Blood Pressure [Left Arm] 169/80 Blood Pressure 184/78 O2 Sat by Pulse Oximetry 98 Oriented: Normal Eyes: Normal Ear: Normal Nose: Normal Throat: Normal Respiratory: RLL Diminished, LLL Diminished Cardiovascular: Normal. negative: Edema : Normal Auscultation: Bowel Sounds: Normal Palpation: Normal Tenderness: Normal Skin: Decreased Turgur Musculoskeletal: Back:Thoracic, Back:Lumbar Psychiatric: Anxiety Affect: Anxious Speech Pattern: Clear, Appropriate - Assessment/Plan (1) Acute dyspnea Status: Acute Plan: ADMIT, CTA LUNGS OBTAINED IN ER. COVID 19 NEGATIVE. BLOOD CULTURES AND URINE CULTURE ORDERED ON ADMISSION. SERIAL CE AND EKG. GENTLE IV HYDRATION WITH STRICT I&OS. VERIFY HOME MEDICATION, RESUME BP MEDICATION AND ELIQUIS. PT AND RESP CONSULT, IV ATBX, ROOM AIR ABG (2) Acute hypokalemia Status: Acute (3) Hypertension Qualifiers: Hypertension type: primary hypertension Qualified Code(s): I10 - Essential (primary) hypertension Status: Acute (4) RLL pneumonia Qualifiers: Pneumonia type: due to unspecified organism Qualified Code(s): J18.9 - Pneumonia, unspecified organism Status: Acute (5) Osteoarthritis Status: Chronic - Allergies Allergies/Adverse Reactions: Allergies Allergy/AdvReac Type Severity Reaction Status Date / Time brompheniramine Allergy Verified 10/06/21 10:35 phenylpropanolamine Allergy Verified 10/06/21 10:35
[2021-12-04] MEDS ORDERED: TYLENOL 325 MG TAB PO ONE (13:55)
[2021-12-04] MEDS: TYLENOL 325 MG TAB PO PRN ×2 (14:01→21:52)
[2021-12-04 15:20] LABS: CREATINE KINASE 20 Units/L (39-308); CREATINE KINASE MB < 1.0 ng/mL (0-4.0)
[2021-12-04] MEDS: ZOCOR TAB 40 MG PO SCH (21:05)
[2021-12-04] MEDS: ZyrTEC TAB 10 MG PO SCH (21:05)
[2021-12-04 21:35] LABS: CREATINE KINASE 20 Units/L (39-308); CREATINE KINASE MB < 1.0 ng/mL (0-4.0)
[2021-12-04] MEDS ORDERED: MORPHINE SULFATE INJ 2 MG INJ IVP ONE (23:27)
[2021-12-05] MEDS: XOPENEX 1.25 MG/3 ML NEBULE NEB SCH ×4 (00:40→18:34)
[2021-12-05 05:33] LABS: ALANINE AMINOTRANSFERASE 19 Units/L (12-78); ALBUMIN 2.2 g/dL (3.4-5.0); ALKALINE PHOSPHATASE 94 Units/L (46-116); ASPARTATE AMINO TRANSFERASE 14 Units/L (15-37); BLOOD UREA NITROGEN 12 mg/dL (7-18); CALCIUM 7.7 mg/dL (8.5-10.1); CARBON DIOXIDE 28.4 mmol/L (21-32); CHLORIDE 104 mmol/L (98-107); COR CA(FOR HYPOALB) 9.1 mg/dL (8.5-10.1); CREATININE 1.42 mg/dL (0.70-1.30); MAGNESIUM 1.8 mg/dL (1.7-2.9); SODIUM 138 mmol/L (136-145); TOTAL PROTEIN 5.5 g/dL (6.4-8.2); eGFR NON BLACK RACES 50 (>60)
[2021-12-05] MEDS: MAGNESIUM SULFATE 1 GRAM/100 mL PREMIX 1 G/100 ML BAG IV PRN ×2 (06:09→12:23)
[2021-12-05 06:16] LABS: BASOPHILS % (AUTO) 0.6 % (0.2-1.0); EOSINOPHILS # (AUTO) 0.1 x10^3/uL (0.0-0.2); EOSINOPHILS % (AUTO) 2.1 % (0.9-2.9); HEMATOCRIT 27.9 % (42.0-54.0); HEMOGLOBIN 9.5 g/dL (13.5-18.0); LYMPHOCYTES % (AUTO) 16.1 % (21.0-51.0); MEAN CORPUSCULAR HEMOGLOBIN 27.4 pg (27.0-34.0); MEAN CORPUSCULAR HGB CONC 34.2 g/dL (33.0-35.0); MEAN CORPUSCULAR VOLUME 80.2 fL (80.0-100.0); MEAN PLATELET VOLUME 7.7 fL (7.4-11.0); MONOCYTES # (AUTO) 0.7 x10^3/uL (0.3-0.8); MONOCYTES % (AUTO) 10.4 % (0.0-13.0); NEUTROPHILS # (AUTO) 4.4 x10^3/uL (2.2-4.8); NEUTROPHILS % (AUTO) 70.8 % (42.0-75.0); RED BLOOD COUNT 3.48 X10^6/uL (4.7-6.0); RED CELL DISTRIBUTION WIDTH 14.5 % (11.6-16.5); WHITE BLOOD COUNT 6.3 X10^3/uL (3.6-10.0)
[2021-12-05] MEDS ORDERED: COZAAR PO SCH ×2 (09:00→11:00)
[2021-12-05] MEDS ORDERED: LEXAPRO ONE (09:06)
[2021-12-05] MEDS: PULMICORT NEB TX 0.5 MG NEB SCH ×2 (09:20→20:50)
[2021-12-05] MEDS: ZITHROMAX INJ 500 MG VIAL 500 MG in NS 250 ML IV 250 ML IV SCH (09:21)
[2021-12-05] MEDS: MAXIPIME VIAL 1 GRAM 1 G in NS 50 ML IV 50 ML IV SCH ×2 (09:21→20:32)
[2021-12-05] MEDS: ELIQUIS PO SCH ×2 (09:22→20:32)
[2021-12-05] MEDS: ZyrTEC TAB 10 MG PO SCH (09:22)
[2021-12-05] MEDS: LEXAPRO PO SCH (09:23)
[2021-12-05] MEDS: LOPRESSOR TAB 50 MG PO SCH ×2 (09:23→20:32)
[2021-12-05] MEDS: MICRO K EXTEN CAP 10 MEQ PO SCH (09:23)
[2021-12-05] MEDS: PROTONIX INJ 40 MG VIAL IVP SCH (09:23)
[2021-12-05] MEDS: NS + KCL 20 MEQ/L 1,000 ML IV SCH (12:23)
[2021-12-05] MEDS: COZAAR PO SCH (20:31)
[2021-12-05] MEDS: KLONOPIN TAB 0.5 MG PO PRN (20:33)
[2021-12-05] MEDS: ZOCOR TAB 40 MG PO SCH (20:33)
--- NOTE | 2021-12-05 20:58 | PCM.PROG ---
Progress Note Progress Note for Day of Date of Exam: 12/05/21 Subjective Subjective: The patient is alert and awake this morning. The family reports is not eating much. He still feels bad he reports but not as bad as he did when he came in. Potassium is low again this morning at 3.0. Hemoglobin is 9.5. Creatinine is 1.42. Any current treatment we will add Megace for anorexia and will continue potassium replacement protocol for hypokalemia. Past Medical Family Social History Past Med/Fam/Surg Hx: No changes since H&P Allergies: Allergies brompheniramine Allergy (Verified 10/06/21 10:35) phenylpropanolamine Allergy (Verified 10/06/21 10:35) Review of Systems ROS: No change since H&P Vital Signs and I&O's Vital Signs: Temperature 97.6 F Pulse Rate 68 Respiratory Rate 18 Blood Pressure [Left Arm] 169/80 Blood Pressure 178/77 O2 Sat by Pulse Oximetry 97 Intake and Output: Intake & Output 12/03/21 12/04/21 12/05/21 12/06/21 11:59 11:59 11:59 11:59 Intake Total 1563 / 1563 680 / 680 Balance 1563 / 1563 680 / 680 Physical Exam Oriented: Normal Eyes: Normal Ear: Normal Nose: Normal Throat: Normal Respiratory: Normal Cardiovascular: Normal; negative Edema : Normal Auscultation: Bowel Sounds: Normal Tenderness: Normal Skin: Decreased Turgur Musculoskeletal: Back:Thoracic and Back:Lumbar Psychiatric: Anxiety Affect: Anxious Speech Pattern: Clear and Appropriate Laboratory and Diagnostics Result Diagrams: 12/05/21 04:33 12/05/21 04:33 Labs: 12/04/21 10:05 Urine,Clean Catch Urine Culture - Preliminary Laboratory WBC 6.3 X10^3/uL (3.6-10.0) 12/05/21 04:33 RBC 3.48 X10^6/uL (4.7-6.0) L 12/05/21 04:33 Hgb 9.5 g/dL (13.5-18.0) L 12/05/21 04:33 Hct 27.9 % (42.0-54.0) L 12/05/21 04:33 MCV 80.2 fL (80.0-100.0) 12/05/21 04:33 MCH 27.4 pg (27.0-34.0) 12/05/21 04:33 MCHC 34.2 g/dL (33.0-35.0) 12/05/21 04:33 RDW 14.5 % (11.6-16.5) 12/05/21 04:33 Plt Count 265 X10^3/uL (150.0-450.0) 12/05/21 04:33 MPV 7.7 fL (7.4-11.0) 12/05/21 04:33 Neut % (Auto) 70.8 % (42.0-75.0) 12/05/21 04:33 Lymph % (Auto) 16.1 % (21.0-51.0) L 12/05/21 04:33 [place] % (Auto) 10.4 % (0.0-13.0) 12/05/21 04:33 Eos % (Auto) 2.1 % (0.9-2.9) 12/05/21 04:33 Baso % (Auto) 0.6 % (0.2-1.0) 12/05/21 04:33 Neut # (Auto) 4.4 x10^3/uL (2.2-4.8) 12/05/21 04:33 Lymph # (Auto) 1.0 X10^3/uL (1.3-2.9) L 12/05/21 04:33 [place] # (Auto) 0.7 x10^3/uL (0.3-0.8) 12/05/21 04:33 Eos # (Auto) 0.1 x10^3/uL (0.0-0.2) 12/05/21 04:33 Baso # (Auto) 0.0 X10^3/uL (0.0-0.1) 12/05/21 04:33 Absolute Nucleated RBC 0.0 /100WBC 12/05/21 04:33 Sample Site Rrad 12/04/21 09:12 ABG pH 7.540 (7.35-7.45) H 12/04/21 09:12 ABG pCO2 29.0 mmHg (35.0-45.0) L 12/04/21 09:12 ABG pO2 77.0 mmHg (80.0-100.0) L 12/04/21 09:12 ABG HCO3 24.8 mmol/L (22-26) 12/04/21 09:12 ABG O2 Saturation 97.0 % (90-100) 12/04/21 09:12 ABG Base Excess 2.9 mmol/L (-2.0-2.0) H 12/04/21 09:12 Stew Test Pos 12/04/21 09:12 A-a Gradient Not Reportable 12/04/21 09:12 FiO2 21.0 12/04/21 09:12 Blood Gas Comments Sravani well 12/04/21 09:12 Sodium 138 mmol/L (136-145) 12/05/21 04:33 Corrected Sodium TNP 12/05/21 04:33 Potassium 3.0 mmol/L (3.5-5.1) L 12/05/21 04:33 Chloride 104 mmol/L (98-107) 12/05/21 04:33 Carbon Dioxide 28.4 mmol/L (21-32) 12/05/21 04:33 BUN 12 mg/dL (7-18) 12/05/21 04:33 Creatinine 1.42 mg/dL (0.70-1.30) H 12/05/21 04:33 Est GFR (MDRD) Af Amer > 60 (>60) 12/05/21 04:33 Est GFR (MDRD) Non-Af 50 (>60) L 12/05/21 04:33 Glucose 103 mg/dL (65-99) H 12/05/21 04:33 Calcium 7.7 mg/dL (8.5-10.1) L 12/05/21 04:33 Corrected Calcium 9.1 mg/dL (8.5-10.1) 12/05/21 04:33 Magnesium 1.8 mg/dL (1.7-2.9) 12/05/21 04:33 Total Bilirubin 0.30 mg/dL (0.2-1.0) 12/05/21 04:33 AST 14 Units/L (15-37) L 12/05/21 04:33 ALT 19 Units/L (12-78) 12/05/21 04:33 Alkaline Phosphatase 94 Units/L (46-116) 12/05/21 04:33 Creatine Kinase 20 Units/L (39-308) L 12/04/21 21:05 CK-MB (CK-2) < 1.0 ng/mL (0-4.0) 12/04/21 21:05 CK/CKMB % Calc 5.0 % (<4) 12/04/21 21:05 Troponin I High Sens 19.2 ng/L (4.0-60.0) 12/04/21 21:05 Total Protein 5.5 g/dL (6.4-8.2) L 12/05/21 04:33 Albumin 2.2 g/dL (3.4-5.0) L 12/05/21 04:33 Globulin 3.3 g/dL (2.5-4.5) 12/05/21 04:33 Albumin/Globulin Ratio 0.7 Ratio (1.1-2.1) L 12/05/21 04:33 Specimen Type Clean catch urine 12/04/21 10:05 Urine Color Yellow (YELLOW) 12/04/21 10:05 Urine Appearance Clear (CLEAR) 12/04/21 10:05 Urine pH 7.0 (5.0 - 8.0) 12/04/21 10:05 Ur Specific [place] 1.010 (1.000-1.030) 12/04/21 10:05 Urine Protein 1+ (NEGATIVE) 12/04/21 10:05 Urine Glucose (UA) Negative (NEGATIVE) 12/04/21 10:05 Urine Ketones Negative (NEGATIVE) 12/04/21 10:05 Urine Blood 1+ (NEGATIVE) 12/04/21 10:05 Urine Nitrite Negative (NEGATIVE) 12/04/21 10:05 Urine Bilirubin Negative (NEGATIVE) 12/04/21 10:05 Urine Urobilinogen Normal (NORMAL) 12/04/21 10:05 Ur Leukocyte Esterase Negative (NEGATIVE) 12/04/21 10:05 Urine RBC 0-2 /HPF (0-3) 12/04/21 10:05 Urine WBC 0-2 /HPF (0-5) 12/04/21 10:05 Ur Squamous Epith Cells Rare /HPF (NEGATIVE) 12/04/21 10:05 Urine Bacteria Negative /HPF (NEGATIVE) 12/04/21 10:05 Ur Culture Indicated? No/not indicated 12/04/21 10:05 SARS CoV-2 RNA Rapid JESSICA Negative (NEGATIVE) 12/04/21 02:50 Plan (1) Acute dyspnea: Status: Acute Plan: ADMIT, CTA LUNGS OBTAINED IN ER COVID 19 NEGATIVE. BLOOD CULTURES AND URINE CULTURE ORDERED ON ADMISSION SERIAL CE AND EKG GENTLE IV HYDRATION WITH STRICT I&OS VERIFY HOME MEDICATION, RESUME BP MEDICATION AND ELIQUIS PT AND RESP CONSULT, IV ATBX, ROOM AIR ABG (2) Acute hypokalemia: Status: Acute Plan: Continue with potassium replacement protocol. (3) Hypertension: Status: Acute Qualifiers: Hypertension type: primary hypertension Qualified Code(s): I10 - Essential (primary) hypertension (4) RLL pneumonia: Status: Acute Qualifiers: Pneumonia type: due to unspecified organism Qualified Code(s): J18.9 - Pneumonia, unspecified organism (5) Osteoarthritis: Status: Chronic (6) Anorexia: Status: Acute Plan: Started Megace on the patient today.
[2021-12-06] MEDS: XOPENEX 1.25 MG/3 ML NEBULE NEB SCH ×5 (00:26→17:44)
[2021-12-06 05:13] LABS: BASOPHILS % (AUTO) 0.7 % (0.2-1.0); EOSINOPHILS # (AUTO) 0.2 x10^3/uL (0.0-0.2); EOSINOPHILS % (AUTO) 2.6 % (0.9-2.9); HEMOGLOBIN 9.3 g/dL (13.5-18.0); LYMPHOCYTES # (AUTO) 0.8 X10^3/uL (1.3-2.9); MEAN CORPUSCULAR HEMOGLOBIN 27.7 pg (27.0-34.0); MEAN CORPUSCULAR HGB CONC 34.4 g/dL (33.0-35.0); MEAN CORPUSCULAR VOLUME 80.7 fL (80.0-100.0); MEAN PLATELET VOLUME 8.2 fL (7.4-11.0); MONOCYTES # (AUTO) 0.5 x10^3/uL (0.3-0.8); MONOCYTES % (AUTO) 9.1 % (0.0-13.0); NEUTROPHILS # (AUTO) 4.5 x10^3/uL (2.2-4.8); NEUTROPHILS % (AUTO) 74.6 % (42.0-75.0); RED BLOOD COUNT 3.35 X10^6/uL (4.7-6.0); RED CELL DISTRIBUTION WIDTH 14.9 % (11.6-16.5)
[2021-12-06 05:30] LABS: ALANINE AMINOTRANSFERASE 21 Units/L (12-78); ALBUMIN 2.3 g/dL (3.4-5.0); ALKALINE PHOSPHATASE 94 Units/L (46-116); ASPARTATE AMINO TRANSFERASE 18 Units/L (15-37); BLOOD UREA NITROGEN 11 mg/dL (7-18); CALCIUM 7.8 mg/dL (8.5-10.1); CARBON DIOXIDE 29.2 mmol/L (21-32); CHLORIDE 106 mmol/L (98-107); COR CA(FOR HYPOALB) 9.2 mg/dL (8.5-10.1); COR NA(FOR HYPERGLY) 142 mmol/L (136-145); MAGNESIUM 2.2 mg/dL (1.7-2.9); SODIUM 141 mmol/L (136-145); TOTAL PROTEIN 5.7 g/dL (6.4-8.2); eGFR NON BLACK RACES 51 (>60)
[2021-12-06 06:15] LABS: BILIRUBIN,URINE NEGATIVE (NEGATIVE); BLOOD/HEMOGLOBIN,URINE 1+ (NEGATIVE); GLUCOSE, URINE NEGATIVE (NEGATIVE); KETONES,URINE NEGATIVE (NEGATIVE); LEUKOCYTE ESTERASE ,URINE NEGATIVE (NEGATIVE); NITRITES,URINE NEGATIVE (NEGATIVE); PROTEIN,URINE 1+ (NEGATIVE); UROBILINOGEN,URINE NORMAL (NORMAL)
[2021-12-06 06:43] LABS: APPEARANCE,URINE CLEAR (CLEAR); BACTERIA,URINE TRACE /HPF (NEGATIVE); COLOR,URINE PALE YELLOW (YELLOW); RBC,URINE 0-2 /HPF (0-3); SQUAMOUS EPITHELIAL CELL,UR RARE /HPF (NEGATIVE)
[2021-12-06] MEDS ORDERED: LEXAPRO ONE (07:54)
[2021-12-06] MEDS ORDERED: MAXIPIME VIAL 1 GRAM ONE (07:57)
[2021-12-06] MEDS: MAXIPIME VIAL 1 GRAM 1 G in NS 50 ML IV 50 ML IV SCH ×2 (08:18→20:33)
[2021-12-06] MEDS: COZAAR PO SCH ×2 (08:20→20:33)
[2021-12-06] MEDS: MICRO K EXTEN CAP 10 MEQ PO SCH (08:21)
[2021-12-06] MEDS: LOPRESSOR TAB 50 MG PO SCH ×2 (08:22→20:32)
[2021-12-06] MEDS: ELIQUIS PO SCH ×2 (08:22→20:32)
[2021-12-06] MEDS: LEXAPRO PO SCH (08:22)
[2021-12-06] MEDS: ZITHROMAX INJ 500 MG VIAL 500 MG in NS 250 ML IV 250 ML IV SCH (08:23)
[2021-12-06] MEDS: ZyrTEC TAB 10 MG PO SCH (08:36)
[2021-12-06] MEDS: PROTONIX INJ 40 MG VIAL IVP SCH (08:36)
[2021-12-06] MEDS: TYLENOL 325 MG TAB PO PRN ×2 (08:37→20:34)
[2021-12-06] MEDS: PULMICORT NEB TX 0.5 MG NEB SCH ×2 (09:00→20:32)
[2021-12-06] MEDS: NS + KCL 20 MEQ/L 1,000 ML IV SCH ×2 (09:08→21:13)
[2021-12-06] MEDS: HYDROCHLOROTHIAZIDE 25 MG TAB PO SCH (12:23)
[2021-12-06] MEDS: ZOCOR TAB 40 MG PO SCH (20:34)
--- NOTE | 2021-12-06 20:44 | PCM.PROG ---
Progress Note Progress Note for Day of Date of Exam: 12/06/21 Subjective Subjective: The patient is alert and awake this morning. The family reports that he ate a little more since yesterday. He still feels bad he reports but not as bad as he did when he came in. Potassium is low again this morning at 3.4. Hemoglobin is 9.3. Creatinine is 1.40. We added Megace for anorexia yesterday and it seems to be improving his appetite. And will continue potassium replacement protocol for hypokalemia. His blood pressure still elevated so we added HCTZ 25 mg by mouth daily for better hypertension control. Past Medical Family Social History Past Med/Fam/Surg Hx: No changes since H&P Allergies: Allergies brompheniramine Allergy (Verified 10/06/21 10:35) phenylpropanolamine Allergy (Verified 10/06/21 10:35) Review of Systems ROS: No change since H&P Vital Signs and I&O's Vital Signs: Temperature 98.5 F Pulse Rate 62 Respiratory Rate 19 Blood Pressure [Left Arm] 169/80 Blood Pressure 186/79 O2 Sat by Pulse Oximetry 99 Intake and Output: Intake & Output 12/04/21 12/05/21 12/06/21 12/07/21 11:59 11:59 11:59 11:59 Intake Total 1563 / 1563 1251 / 1251 600 / 600 Output Total 450 / 450 100 / 100 Balance 1563 / 1563 801 / 801 500 / 500 Physical Exam Oriented: Normal Eyes: Normal Ear: Normal Nose: Normal Throat: Normal Respiratory: Normal Cardiovascular: Normal; negative Edema : Normal Auscultation: Bowel Sounds: Normal Tenderness: Normal Skin: Decreased Turgur Musculoskeletal: Back:Thoracic and Back:Lumbar Psychiatric: Anxiety Affect: Anxious Speech Pattern: Clear and Appropriate Laboratory and Diagnostics Result Diagrams: 12/06/21 03:56 12/06/21 03:56 Labs: 12/04/21 09:39 Blood Blood Culture - Preliminary 12/04/21 09:22 Blood Blood Culture - Preliminary 12/04/21 10:05 Urine,Clean Catch Urine Culture - Final Laboratory WBC 6.0 X10^3/uL (3.6-10.0) 12/06/21 03:56 RBC 3.35 X10^6/uL (4.7-6.0) L 12/06/21 03:56 Hgb 9.3 g/dL (13.5-18.0) L 12/06/21 03:56 Hct 27.0 % (42.0-54.0) L 12/06/21 03:56 MCV 80.7 fL (80.0-100.0) 12/06/21 03:56 MCH 27.7 pg (27.0-34.0) 12/06/21 03:56 MCHC 34.4 g/dL (33.0-35.0) 12/06/21 03:56 RDW 14.9 % (11.6-16.5) 12/06/21 03:56 Plt Count 231 X10^3/uL (150.0-450.0) 12/06/21 03:56 MPV 8.2 fL (7.4-11.0) 12/06/21 03:56 Neut % (Auto) 74.6 % (42.0-75.0) 12/06/21 03:56 Lymph % (Auto) 13.0 % (21.0-51.0) L 12/06/21 03:56 Gem % (Auto) 9.1 % (0.0-13.0) 12/06/21 03:56 Eos % (Auto) 2.6 % (0.9-2.9) 12/06/21 03:56 Baso % (Auto) 0.7 % (0.2-1.0) 12/06/21 03:56 Neut # (Auto) 4.5 x10^3/uL (2.2-4.8) 12/06/21 03:56 Lymph # (Auto) 0.8 X10^3/uL (1.3-2.9) L 12/06/21 03:56 Gem # (Auto) 0.5 x10^3/uL (0.3-0.8) 12/06/21 03:56 Eos # (Auto) 0.2 x10^3/uL (0.0-0.2) 12/06/21 03:56 Baso # (Auto) 0.0 X10^3/uL (0.0-0.1) 12/06/21 03:56 Absolute Nucleated RBC 0.0 /100WBC 12/06/21 03:56 Sample Site Rrad 12/04/21 09:12 ABG pH 7.540 (7.35-7.45) H 12/04/21 09:12 ABG pCO2 29.0 mmHg (35.0-45.0) L 12/04/21 09:12 ABG pO2 77.0 mmHg (80.0-100.0) L 12/04/21 09:12 ABG HCO3 24.8 mmol/L (22-26) 12/04/21 09:12 ABG O2 Saturation 97.0 % (90-100) 12/04/21 09:12 ABG Base Excess 2.9 mmol/L (-2.0-2.0) H 12/04/21 09:12 Stew Test Pos 12/04/21 09:12 A-a Gradient Not Reportable 12/04/21 09:12 FiO2 21.0 12/04/21 09:12 Blood Gas Comments Sravani well 12/04/21 09:12 Sodium 141 mmol/L (136-145) 12/06/21 03:56 Corrected Sodium 142 mmol/L (136-145) 12/06/21 03:56 Potassium 3.4 mmol/L (3.5-5.1) L 12/06/21 03:56 Chloride 106 mmol/L (98-107) 12/06/21 03:56 Carbon Dioxide 29.2 mmol/L (21-32) 12/06/21 03:56 BUN 11 mg/dL (7-18) 12/06/21 03:56 Creatinine 1.40 mg/dL (0.70-1.30) H 12/06/21 03:56 Est GFR (MDRD) Af Amer > 60 (>60) 12/06/21 03:56 Est GFR (MDRD) Non-Af 51 (>60) L 12/06/21 03:56 Glucose 123 mg/dL (65-99) H 12/06/21 03:56 Calcium 7.8 mg/dL (8.5-10.1) L 12/06/21 03:56 Corrected Calcium 9.2 mg/dL (8.5-10.1) 12/06/21 03:56 Magnesium 2.2 mg/dL (1.7-2.9) 12/06/21 03:56 Total Bilirubin 0.40 mg/dL (0.2-1.0) 12/06/21 03:56 AST 18 Units/L (15-37) 12/06/21 03:56 ALT 21 Units/L (12-78) 12/06/21 03:56 Alkaline Phosphatase 94 Units/L (46-116) 12/06/21 03:56 Creatine Kinase 20 Units/L (39-308) L 12/04/21 21:05 CK-MB (CK-2) < 1.0 ng/mL (0-4.0) 12/04/21 21:05 CK/CKMB % Calc 5.0 % (<4) 12/04/21 21:05 Troponin I High Sens 19.2 ng/L (4.0-60.0) 12/04/21 21:05 Total Protein 5.7 g/dL (6.4-8.2) L 12/06/21 03:56 Albumin 2.3 g/dL (3.4-5.0) L 12/06/21 03:56 Globulin 3.4 g/dL (2.5-4.5) 12/06/21 03:56 Albumin/Globulin Ratio 0.7 Ratio (1.1-2.1) L 12/06/21 03:56 Specimen Type Clean catch urine 12/06/21 06:00 Urine Color Pale yellow (YELLOW) 12/06/21 06:00 Urine Appearance Clear (CLEAR) 12/06/21 06:00 Urine pH 6.0 (5.0 - 8.0) 12/06/21 06:00 Ur Specific [place] 1.010 (1.000-1.030) 12/06/21 06:00 Urine Protein 1+ (NEGATIVE) 12/06/21 06:00 Urine Glucose (UA) Negative (NEGATIVE) 12/06/21 06:00 Urine Ketones Negative (NEGATIVE) 12/06/21 06:00 Urine Blood 1+ (NEGATIVE) 12/06/21 06:00 Urine Nitrite Negative (NEGATIVE) 12/06/21 06:00 Urine Bilirubin Negative (NEGATIVE) 12/06/21 06:00 Urine Urobilinogen Normal (NORMAL) 12/06/21 06:00 Ur Leukocyte Esterase Negative (NEGATIVE) 12/06/21 06:00 Urine RBC 0-2 /HPF (0-3) 12/06/21 06:00 Urine WBC 0-2 /HPF (0-5) 12/06/21 06:00 Ur Squamous Epith Cells Rare /HPF (NEGATIVE) 12/06/21 06:00 Amorphous Sediment Trace /HPF (NEGATIVE) 12/06/21 06:00 Urine Bacteria Trace /HPF (NEGATIVE) 12/06/21 06:00 Ur Culture Indicated? Yes/culture set up 12/06/21 06:00 SARS CoV-2 RNA Rapid JESSICA Negative (NEGATIVE) 12/04/21 02:50 Plan (1) Acute dyspnea: Status: Acute Plan: ADMIT, CTA LUNGS OBTAINED IN ER COVID 19 NEGATIVE. BLOOD CULTURES AND URINE CULTURE ORDERED ON ADMISSION SERIAL CE AND EKG GENTLE IV HYDRATION WITH STRICT I&OS VERIFY HOME MEDICATION, RESUME BP MEDICATION AND ELIQUIS PT AND RESP CONSULT, IV ATBX, ROOM AIR ABG (2) Acute hypokalemia: Status: Acute Plan: Continue with potassium replacement protocol. (3) Hypertension: Status: Acute Qualifiers: Hypertension type: primary hypertension Qualified Code(s): I10 - Essential (primary) hypertension (4) RLL pneumonia: Status: Acute Qualifiers: Pneumonia type: due to unspecified organism Qualified Code(s): J18.9 - Pneumonia, unspecified organism (5) Osteoarthritis: Status: Chronic (6) Anorexia: Status: Acute Plan: Started Megace on the patient today.
[2021-12-06] MEDS: KLONOPIN TAB 0.5 MG PO PRN (21:14)
[2021-12-07] MEDS: XOPENEX 1.25 MG/3 ML NEBULE NEB SCH ×4 (00:37→16:34)
[2021-12-07 05:32] LABS: BASOPHILS % (AUTO) 0.6 % (0.2-1.0); EOSINOPHILS # (AUTO) 0.2 x10^3/uL (0.0-0.2); EOSINOPHILS % (AUTO) 2.9 % (0.9-2.9); HEMATOCRIT 28.5 % (42.0-54.0); HEMOGLOBIN 9.9 g/dL (13.5-18.0); LYMPHOCYTES # (AUTO) 0.9 X10^3/uL (1.3-2.9); LYMPHOCYTES % (AUTO) 15.3 % (21.0-51.0); MEAN CORPUSCULAR HEMOGLOBIN 27.9 pg (27.0-34.0); MEAN CORPUSCULAR HGB CONC 34.7 g/dL (33.0-35.0); MEAN CORPUSCULAR VOLUME 80.4 fL (80.0-100.0); MEAN PLATELET VOLUME 8.2 fL (7.4-11.0); MONOCYTES # (AUTO) 0.6 x10^3/uL (0.3-0.8); MONOCYTES % (AUTO) 10.2 % (0.0-13.0); RED BLOOD COUNT 3.55 X10^6/uL (4.7-6.0); RED CELL DISTRIBUTION WIDTH 15.1 % (11.6-16.5); WHITE BLOOD COUNT 5.6 X10^3/uL (3.6-10.0)
[2021-12-07 05:47] LABS: ALBUMIN 2.3 g/dL (3.4-5.0); CARBON DIOXIDE 29.9 mmol/L (21-32); COR CA(FOR HYPOALB) 9.4 mg/dL (8.5-10.1); CREATININE 1.5 mg/dL (0.70-1.30); TOTAL PROTEIN 5.9 g/dL (6.4-8.2)
--- NOTE | 2021-12-07 06:24 | RAD ---
HISTORYFollow-up pneumoniaSTUDYChest AP [id number]/2022 chest x-ray, 12/05/2019 to CTA chestFINDINGSThere is a right-sided PICC line in good position. Heart size is normal. Sri are normal. Lungs are well inflated. No definite infiltrates are identified. Right hemidiaphragm remains chronically elevated. The right lower lobe infiltrate/volume loss visible on the recent CTA chest is not visible on plain film likely due to its far posterior inferior location behind the elevated right hemidiaphragm. No pleural effusions are identified. Bony thorax is unremarkable.IMPRESSIONNo definite infiltrates identified (see discussion above close)Chronically elevated right hemidiaphragmElectronically signed by: SANGITA TRAN (Dec 07, 2021 06:23:56)
[2021-12-07] MEDS: PULMICORT NEB TX 0.5 MG NEB SCH ×2 (08:50→20:10)
[2021-12-07] MEDS ORDERED: LEXAPRO ONE (09:06)
[2021-12-07] MEDS: MAXIPIME VIAL 1 GRAM 1 G in NS 50 ML IV 50 ML IV SCH ×2 (09:13→20:07)
[2021-12-07] MEDS: LOPRESSOR TAB 50 MG PO SCH ×2 (09:14→20:07)
[2021-12-07] MEDS: ZITHROMAX INJ 500 MG VIAL 500 MG in NS 250 ML IV 250 ML IV SCH (09:14)
[2021-12-07] MEDS: COZAAR PO SCH ×2 (09:14→20:07)
[2021-12-07] MEDS: HYDROCHLOROTHIAZIDE 25 MG TAB PO SCH (09:14)
[2021-12-07] MEDS: ZyrTEC TAB 10 MG PO SCH (09:15)
[2021-12-07] MEDS: MICRO K EXTEN CAP 10 MEQ PO SCH (09:15)
[2021-12-07] MEDS: ELIQUIS PO SCH ×2 (09:16→20:07)
[2021-12-07] MEDS: LEXAPRO PO SCH (09:16)
[2021-12-07] MEDS: PROTONIX INJ 40 MG VIAL IVP SCH (09:16)
[2021-12-07] MEDS: NS + KCL 20 MEQ/L 1,000 ML IV SCH (09:17)
[2021-12-07] MEDS: NORVASC TAB 5 MG PO SCH (10:28)
[2021-12-07] MEDS: TYLENOL 325 MG TAB PO PRN (15:52)
[2021-12-07] MEDS: KLONOPIN TAB 0.5 MG PO PRN (20:08)
[2021-12-07] MEDS ORDERED: LIPITOR TAB 20 MG PO SCH (21:00)
[2021-12-08] MEDS: XOPENEX 1.25 MG/3 ML NEBULE NEB SCH ×3 (00:15→13:04)
[2021-12-08 05:01] LABS: BASOPHILS % (AUTO) 0.8 % (0.2-1.0); EOSINOPHILS # (AUTO) 0.2 x10^3/uL (0.0-0.2); EOSINOPHILS % (AUTO) 3.4 % (0.9-2.9); HEMATOCRIT 28.3 % (42.0-54.0); HEMOGLOBIN 9.8 g/dL (13.5-18.0); LYMPHOCYTES # (AUTO) 0.9 X10^3/uL (1.3-2.9); LYMPHOCYTES % (AUTO) 16.8 % (21.0-51.0); MEAN CORPUSCULAR HEMOGLOBIN 27.8 pg (27.0-34.0); MEAN CORPUSCULAR HGB CONC 34.5 g/dL (33.0-35.0); MEAN CORPUSCULAR VOLUME 80.5 fL (80.0-100.0); MEAN PLATELET VOLUME 8.2 fL (7.4-11.0); MONOCYTES # (AUTO) 0.5 x10^3/uL (0.3-0.8); MONOCYTES % (AUTO) 9.6 % (0.0-13.0); NEUTROPHILS # (AUTO) 3.7 x10^3/uL (2.2-4.8); NEUTROPHILS % (AUTO) 69.4 % (42.0-75.0); RED BLOOD COUNT 3.52 X10^6/uL (4.7-6.0); RED CELL DISTRIBUTION WIDTH 14.8 % (11.6-16.5); WHITE BLOOD COUNT 5.4 X10^3/uL (3.6-10.0)
[2021-12-08 05:12] LABS: ALBUMIN 2.3 g/dL (3.4-5.0); CALCIUM 8.1 mg/dL (8.5-10.1); CARBON DIOXIDE 31.5 mmol/L (21-32); COR CA(FOR HYPOALB) 9.5 mg/dL (8.5-10.1); CREATININE 1.5 mg/dL (0.70-1.30); TOTAL PROTEIN 5.9 g/dL (6.4-8.2)
[2021-12-08] MEDS: KLONOPIN TAB 0.5 MG PO PRN (06:15)
[2021-12-08] MEDS: MAGNESIUM SULFATE 1 GRAM/100 mL PREMIX 1 G/100 ML BAG IV PRN (06:24)
[2021-12-08] MEDS: PULMICORT NEB TX 0.5 MG NEB SCH (08:57)
[2021-12-08] MEDS ORDERED: LEXAPRO ONE (09:35)
[2021-12-08] MEDS: ZyrTEC TAB 10 MG PO SCH (09:44)
[2021-12-08] MEDS: LOPRESSOR TAB 50 MG PO SCH (09:45)
[2021-12-08] MEDS: COZAAR PO SCH (09:46)
[2021-12-08] MEDS: ELIQUIS PO SCH (09:47)
[2021-12-08] MEDS: MICRO K EXTEN CAP 10 MEQ PO SCH (09:48)
[2021-12-08] MEDS: HYDROCHLOROTHIAZIDE 25 MG TAB PO SCH (09:49)
[2021-12-08] MEDS: LEXAPRO PO SCH (09:50)
[2021-12-08] MEDS: NORVASC TAB 5 MG PO SCH (09:51)
[2021-12-08] MEDS: PROTONIX INJ 40 MG VIAL IVP SCH (09:52)
[2021-12-08] MEDS: MAXIPIME VIAL 1 GRAM 1 G in NS 50 ML IV 50 ML IV SCH (09:52)
[2021-12-08] MEDS ORDERED: POTASSIUM CHLORIDE LIQ 20 MEQ UDC PO PRN (10:23)
[2021-12-08] MEDS ORDERED: MICRO K EXTEN CAP 10 MEQ PO PRN (10:23)
[2021-12-08] MEDS ORDERED: POTASSIUM CHL 60 MEQ/NS 0.45% 500 ML IV PRN (10:23)
[2021-12-08] MEDS ORDERED: K-RIDER 10 MEQ/NS 100 ML 10 MEQ/100 ML BAG IV PRN (10:23)
[2021-12-08] MEDS ORDERED: KLOR-CON PO PRN (10:23)
[2021-12-08] MEDS ORDERED: K-DUR TAB 20 MEQ PO PRN (10:23)
[2021-12-08] MEDS ORDERED: POTASSIUM CHL 40 MEQ/NS 0.45% 500 ML IV PRN (10:23)
[2021-12-08] MEDS: ZITHROMAX INJ 500 MG VIAL 500 MG in NS 250 ML IV 250 ML IV SCH (11:13)
[2021-12-08 13:16] VITALS: BP 160/75
--- NOTE | 2022-01-14 12:38 | PCM.DCPLAN ---
Discharge Plan - Discharge Plan Hospital Course: Admit date 12/04/21 Discharge date 12/08/21 DOS 12/08/21 Admit Diagnosis(1) Acute dyspnea (2) Acute hypokalemia (3) Hypertension (4) RLL pneumonia (5) Osteoarthritis Discharge Diagnosis(1) Acute dyspnea: (2) Acute hypokalemia: (3) Hypertension: (4) Osteoarthritis: (5) Anorexia: (6)Generalized anxiety Hospital Course PT IS 86 WM ER ADMISSION AFTER PRESENTING WITH CO CHEST PAIN AND SOB. PT WAS IN THE ER LATER ON TUESDAY AFTERNOON WITH SAME SYMPTOMS. PT WAS RECENTLY DX WITH AFIB AND IS ON METOPROLOL AND ELIQUIS AND HAD BEEN COMPLIANT WITH WITH MEDICATION REGIMEN. 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 PT HAS PMH OF HTN, COPD, AND OA. PTS LAST HEART CATH WAS IN 2014 AND LAST KNOWN STRESS TEST WAS IN DECEMBER 2019. PT IS UNDER THE CARE OF [facility]. PT WAS HYPOKALEMIC AND HYPERTENSION ON ARRIVAL. PT ADMITTED FOR TREATMENT AND EVALUATION OF ACUTE ILLNESS. PATIENT AND FAMILY EXPRESS CONCERN FOR DEPRESSION AND ANXIETY DUE TO CHANGES OVER PAST YEAR. PATIENT WAS WORKING DAILY UNTIL HE DEVELOPED OSTEO AND HAS TO HAVE PROCEDURES AND IV ABX HE HAS BECOME MORE SEDENTARY AND DEPRESSED. CTA NEGATIVE FOR PE. CXR CLEAR ON DISCHARGE. CULTURES NEGATIVE. PATIENT DISCHARGE HOME TO FOLLOW UP WITH PCP. SEE DC MED REC FOR MED CHANGES AND ADDITIONS. CONT IV ABX. Greater than 35 mins spent on discharge. Disposition: 06 HOME HEALTH SERVICE Condition: Stable Health Concerns: Post Hospitalization: new medications and changes needed to prevent readmission or further decline. Pt educated and given instructions on all concerns. Care Plan Goals: Problem: Infection Goal: Temperature within normal limits. Resolved infection. Instructions: Follow provided instructions. Follow up with primary physician as directed. Contact primary care physician or report to the closest Emergency Room if condition worsens. Problem: Cardiac Complications Goal: Early Recognition of cardiac complications for prompt intervention Instructions: Follow provided instructions. Follow up with primary physician as directed. Contact primary care physician or report to the closest Emergency Room if condition worsens. Plan of Treatment: Continue with present treatment and follow up plan. Pt is to keep follow up appointment as instructed and take medications as ordered. Prescriptions: New amlodipine [Norvasc] 5 mg Tablet 5 mg PO DAILY Qty: 30 RF: 0 Transmission Status: Received by [facility] atorvastatin [Lipitor] 40 mg Tablet 40 mg PO QHS Qty: 30 RF: 0 Transmission Status: Received by [facility] clonazepam [Klonopin] 0.5 mg Tablet 0.5 mg PO QHS MDD 2 PRNQty: 30 RF: 0 Prescription Printed Continued alfuzosin [Uroxatral] 10 mg tablet extended release 24 hr 10 mg PO HS apple cider vinegar 500 mg Tablet 500 mg PO BID cefepime 1 gram Piggyback 1 g IV BID cetirizine 10 mg Tablet 10 mg PO DAILY cinnamon bark [Cinnamon] 500 mg Capsule 2,000 mg PO ONCE donepezil 5 mg tablet 5 mg PO HS Eliquis 2.5 mg tablet 2.5 mg PO BID escitalopram oxalate 5 mg tablet 5 mg PO DAILY ezetimibe [Zetia] 10 mg tablet 10 mg PO HS ferrous sulfate [FeroSul] 325 mg (65 mg iron) Tablet 325 mg PO DAILY L.acidoph,saliva-B.bif-S.therm [Acidophilus Probiotic Blend] 175 mg Capsule 1 cap PO DAILY levothyroxine 75 mcg tablet 75 mcg PO DAILY melatonin 10 mg Tablet 10 mg PO HS metoprolol tartrate 100 mg tablet 100 mg PO BID multivitamin,tz-tozz-sknhuzzj Tablet 1 tab PO DAILY potassium chloride 10 mEq capsule, extended release 10 meq PO HS turmeric 400 mg Capsule 400 mg PO BID Changed losartan 25 mg Tablet 50 mg PO BID Qty: 60 RF: 0 Changed from: 25 mg oral twice a day Discontinued simvastatin 40 mg tablet 40 mg PO HS - Follow ups/Referrals Follow ups/Referrals: ROCCO WARREN HEALT [STAFF PHYSICIAN] - DANIELLE UGARTE [Nurse Practitioner] - 12/11/21 10:30 am - Instructions Instructions: Fall Prevention in the Home, Adult, Xgak-oe-Wnpy, Shortness of Breath, Adult, Jyiu-fg-Hqbg, Hypokalemia, Panic Attack, Twgw-qn-Vbop, Stroke Prevention, Kmdv-ec-Aqwz, Hypertension, Adult, Nuin-ag-Gpap, Supporting Someone With Anxiety, Managing Anxiety, Adult, Managing Your Hypertension, Community-Acquired Pneumonia, Adult, Unok-fm-Cfvy Forms: Precautions for COVID19, [facility], Patient Portal, Social Distancing Print Language: DJIBOUTIAN
--- NOTE | 2022-01-14 12:45 | PCM.PROG ---
Progress Note - Progress Note for Day of Date of Exam: 12/07/21 - Subjective Subjective: PATIENT IS A 86 YEAR OLD WHITE MALE WHO WAS ADMITTED PER HPI. PATIENT REPORTS IMPROVEMENT IN SYMPTOMS. STATES HE RESTED VERY WELL LAST NIGHT. FAMILY REPORTS PATIENT HAS SLEPT BETTER SINCE THE ADDITION OF ANXIETY MED. REPEAT CXR AND LABS IN AM. PLAN FOR DC HOME IN AM. NO OTHER CONCERNS AT PRESENT. - Past Medical Family Social History Past Med/Fam/Surg Hx: No changes since H&P Allergies: Allergies brompheniramine Allergy (Verified 10/06/21 10:35) phenylpropanolamine Allergy (Verified 10/06/21 10:35) - Review of Systems ROS: No change since H&P - Vital Signs and I&O's Vital Signs: Temperature 97.6 F Pulse Rate 63 Respiratory Rate 28 Blood Pressure [Left Arm] 169/80 Blood Pressure 160/75 O2 Sat by Pulse Oximetry 96 - Physical Exam Oriented: Normal Eyes: Normal Ear: Normal Nose: Normal Throat: Normal Respiratory: Normal Cardiovascular: Normal. negative: Edema : Normal Auscultation: Bowel Sounds: Normal Palpation: Normal Tenderness: Normal Skin: Decreased Turgur Musculoskeletal: Back:Thoracic, Back:Lumbar Psychiatric: Normal Mood Description: Calm Speech Pattern: Clear, Appropriate - Laboratory and Diagnostics Result Diagrams: 12/08/21 04:06 12/08/21 04:06 Labs: 12/04/21 09:22 Blood Blood Culture - Final 12/04/21 09:39 Blood Blood Culture - Final 12/06/21 06:00 Urine,Clean Catch Urine Culture - Final 12/04/21 10:05 Urine,Clean Catch Urine Culture - Final Laboratory WBC 5.4 X10^3/uL (3.6-10.0) 12/08/21 04:06 RBC 3.52 X10^6/uL (4.7-6.0) L 12/08/21 04:06 Hgb 9.8 g/dL (13.5-18.0) L 12/08/21 04:06 Hct 28.3 % (42.0-54.0) L 12/08/21 04:06 MCV 80.5 fL (80.0-100.0) 12/08/21 04:06 MCH 27.8 pg (27.0-34.0) 12/08/21 04:06 MCHC 34.5 g/dL (33.0-35.0) 12/08/21 04:06 RDW 14.8 % (11.6-16.5) 12/08/21 04:06 Plt Count 218 X10^3/uL (150.0-450.0) 12/08/21 04:06 MPV 8.2 fL (7.4-11.0) 12/08/21 04:06 Neut % (Auto) 69.4 % (42.0-75.0) 12/08/21 04:06 Lymph % (Auto) 16.8 % (21.0-51.0) L 12/08/21 04:06 [place] % (Auto) 9.6 % (0.0-13.0) 12/08/21 04:06 Eos % (Auto) 3.4 % (0.9-2.9) H 12/08/21 04:06 Baso % (Auto) 0.8 % (0.2-1.0) 12/08/21 04:06 Neut # (Auto) 3.7 x10^3/uL (2.2-4.8) 12/08/21 04:06 Lymph # (Auto) 0.9 X10^3/uL (1.3-2.9) L 12/08/21 04:06 [place] # (Auto) 0.5 x10^3/uL (0.3-0.8) 12/08/21 04:06 Eos # (Auto) 0.2 x10^3/uL (0.0-0.2) 12/08/21 04:06 Baso # (Auto) 0.0 X10^3/uL (0.0-0.1) 12/08/21 04:06 Absolute Nucleated RBC 0.0 /100WBC 12/08/21 04:06 Sample Site Rrad 12/04/21 09:12 ABG pH 7.540 (7.35-7.45) H 12/04/21 09:12 ABG pCO2 29.0 mmHg (35.0-45.0) L 12/04/21 09:12 ABG pO2 77.0 mmHg (80.0-100.0) L 12/04/21 09:12 ABG HCO3 24.8 mmol/L (22-26) 12/04/21 09:12 ABG O2 Saturation 97.0 % (90-100) 12/04/21 09:12 ABG Base Excess 2.9 mmol/L (-2.0-2.0) H 12/04/21 09:12 Stew Test Pos 12/04/21 09:12 A-a Gradient Not Reportable 12/04/21 09:12 FiO2 21.0 12/04/21 09:12 Blood Gas Comments Sravani well 12/04/21 09:12 Sodium 142 mmol/L (136-145) 12/08/21 04:06 Corrected Sodium 142 mmol/L (136-145) 12/08/21 04:06 Potassium 3.2 mmol/L (3.5-5.1) L 12/08/21 04:06 Chloride 104 mmol/L (98-107) 12/08/21 04:06 Carbon Dioxide 31.5 mmol/L (21-32) 12/08/21 04:06 BUN 11 mg/dL (7-18) 12/08/21 04:06 Creatinine 1.50 mg/dL (0.70-1.30) H 12/08/21 04:06 Est GFR (MDRD) Af Amer 57 (>60) L 12/08/21 04:06 Est GFR (MDRD) Non-Af 47 (>60) L 12/08/21 04:06 Glucose 120 mg/dL (65-99) H 12/08/21 04:06 Calcium 8.1 mg/dL (8.5-10.1) L 12/08/21 04:06 Corrected Calcium 9.5 mg/dL (8.5-10.1) 12/08/21 04:06 Magnesium 1.7 mg/dL (1.7-2.9) 12/08/21 04:06 Total Bilirubin 0.40 mg/dL (0.2-1.0) 12/08/21 04:06 AST 22 Units/L (15-37) 12/08/21 04:06 ALT 25 Units/L (12-78) 12/08/21 04:06 Alkaline Phosphatase 99 Units/L (46-116) 12/08/21 04:06 Creatine Kinase 20 Units/L (39-308) L 12/04/21 21:05 CK-MB (CK-2) < 1.0 ng/mL (0-4.0) 12/04/21 21:05 CK/CKMB % Calc 5.0 % (<4) 12/04/21 21:05 Troponin I High Sens 19.2 ng/L (4.0-60.0) 12/04/21 21:05 Total Protein 5.9 g/dL (6.4-8.2) L 12/08/21 04:06 Albumin 2.3 g/dL (3.4-5.0) L 12/08/21 04:06 Globulin 3.6 g/dL (2.5-4.5) 12/08/21 04:06 Albumin/Globulin Ratio 0.6 Ratio (1.1-2.1) L 12/08/21 04:06 Specimen Type Clean catch urine 12/06/21 06:00 Urine Color Pale yellow (YELLOW) 12/06/21 06:00 Urine Appearance Clear (CLEAR) 12/06/21 06:00 Urine pH 6.0 (5.0 - 8.0) 12/06/21 06:00 Ur Specific [place] 1.010 (1.000-1.030) 12/06/21 06:00 Urine Protein 1+ (NEGATIVE) 12/06/21 06:00 Urine Glucose (UA) Negative (NEGATIVE) 12/06/21 06:00 Urine Ketones Negative (NEGATIVE) 12/06/21 06:00 Urine Blood 1+ (NEGATIVE) 12/06/21 06:00 Urine Nitrite Negative (NEGATIVE) 12/06/21 06:00 Urine Bilirubin Negative (NEGATIVE) 12/06/21 06:00 Urine Urobilinogen Normal (NORMAL) 12/06/21 06:00 Ur Leukocyte Esterase Negative (NEGATIVE) 12/06/21 06:00 Urine RBC 0-2 /HPF (0-3) 12/06/21 06:00 Urine WBC 0-2 /HPF (0-5) 12/06/21 06:00 Ur Squamous Epith Cells Rare /HPF (NEGATIVE) 12/06/21 06:00 Amorphous Sediment Trace /HPF (NEGATIVE) 12/06/21 06:00 Urine Bacteria Trace /HPF (NEGATIVE) 12/06/21 06:00 Ur Culture Indicated? Yes/culture set up 12/06/21 06:00 SARS CoV-2 RNA Rapid JESSICA Negative (NEGATIVE) 12/04/21 02:50 - Plan (1) Acute dyspnea Status: Acute Plan: ADMIT, CTA LUNGS OBTAINED IN ER. COVID 19 NEGATIVE. BLOOD CULTURES AND URINE CULTURE ORDERED ON ADMISSION. SERIAL CE AND EKG. GENTLE IV HYDRATION WITH STRICT I&OS. VERIFY HOME MEDICATION, RESUME BP MEDICATION AND ELIQUIS. PT AND RESP CONSULT, IV ATBX, ROOM AIR ABG (2) Acute hypokalemia Status: Acute Plan: Continue with potassium replacement protocol. (3) Hypertension Status: Acute Qualifiers: Hypertension type: primary hypertension Qualified Code(s): I10 - Essential (primary) hypertension (4) RLL pneumonia Status: Acute Qualifiers: Pneumonia type: due to unspecified organism Qualified Code(s): J18.9 - Pneumonia, unspecified organism (5) Osteoarthritis Status: Chronic (6) Anorexia Status: Acute Plan: Started Megace on the patient today. (7) Osteomyelitis Status: Chronic Plan: CONT IV ABX
== END 2021-12-08 13:10 | disposition home health service (06) ==
LOC: ICU 02:37 → ER 02:37 → ICU 09:00
PROVIDERS: ADMIT Internal Medicine; ATTEND Internal Medicine